=== PATIENT | male | born 1945 | race Caucasian/White ===

== ENCOUNTER 2018-09-24 10:11 | Inpatient (IN) | payer MEDICARE, OTHER ==
[~2018-09-24] VITALS: Ht 185.4 cm; Wt 100.0 kg
[~2018-09-24 10:11] MED LIST: ACET325T33 PO; AMIO200T4 PO; ASC500 PO; ATOR20TA38 PO; BENZ1LOZ52 MM; BISA10SU58 PR; BUDE1AMP IH; CHLO15MO MM; CRAN3875 PO; DILT30TA30 PO; DOCU-144 PO; FERR-55 PO; FURO-110 PO; GEMF600T PO; GLUC1VIA7 IM; HYDR-3498 PO; ISOS30TA PO; LANT3I SC; LEVA0.6312 HHN; LEVE250T5 PO; LORA10CA PO; LORA1TAB PO; LUBI24CA7 PO; MULT1TAB21 PO; NA P118E PR; NOV SC; ONDA4TAB8 PO; PANT40TA3 PO; POLY15DR42 BOTH EYES; POLY17PO6 PO; RIVA20TA5 PO; SIME80TA PO; TAMS0.4C2 PO; TYL500 PO; UDMYL PO
[2018-09-24 10:14] VITALS: Ht 185.4 cm; Wt 100.0 kg
[2018-09-24] MEDS ORDERED: ALBUTEROL 0.083% (NEB) 2.5 MG/3 ML AMP NEB STA (11:35)
[2018-09-24] MEDS ORDERED: CEFEPIME 1GM/50 ML (PMX) 50 ML IVPB STA (12:09)
[2018-09-24] MEDS ORDERED: AMIO200T4 PO (12:29)
[2018-09-24] MEDS ORDERED: LACT1CAP4 PO (12:29)
[2018-09-24] MEDS ORDERED: LEVOFLOXACIN 750MG/D5W (PMX) 150 ML IVPB ONE (12:30)
[2018-09-24] MEDS ORDERED: POLY15DR25 BOTH EYES (12:30)
[2018-09-24] MEDS ORDERED: TAMS0.4C2 PO (12:31)
[2018-09-24] MEDS ORDERED: NA P133E10 RC (12:31)
[2018-09-24] MEDS ORDERED: APIX5TAB PO (12:32)
[2018-09-24] MEDS ORDERED: FER325 PO (12:32)
[2018-09-24] MEDS ORDERED: BISA10SU55 RC (12:34)
[2018-09-24] MEDS ORDERED: CARSR60 PO (12:38)
[2018-09-24] MEDS ORDERED: CRAN425C6 PO (12:39)
[2018-09-24] MEDS ORDERED: CARV3.12 PO (12:40)
[2018-09-24] MEDS ORDERED: DOCU-144 PO (12:40)
[2018-09-24] MEDS ORDERED: CHLO473M4 MM (12:41)
[2018-09-24] MEDS ORDERED: LORA-186 PO (12:41)
[2018-09-24] MEDS ORDERED: LORA-441 PO (12:42)
[2018-09-24] MEDS ORDERED: ACET325T45 PO (12:44)
[2018-09-24] MEDS ORDERED: ACET-2047 PO ×2 (12:44→13:02)
[2018-09-24] MEDS ORDERED: SENN-120 PO (12:45)
[2018-09-24] MEDS ORDERED: PANT40TA3 PO (12:45)
[2018-09-24] MEDS ORDERED: FAMO-96 PO (12:46)
[2018-09-24] MEDS ORDERED: HYDR-4011 PO (12:47)
[2018-09-24] MEDS ORDERED: GABA100C14 PO (12:47)
[2018-09-24] MEDS ORDERED: MAGN400O19 PO (12:48)
[2018-09-24] MEDS ORDERED: INSU100I27 SQ (12:48)
[2018-09-24] MEDS ORDERED: LEVE250T66 PO (12:49)
[2018-09-24] MEDS ORDERED: LEVO25TA PO (12:50)
[2018-09-24] MEDS ORDERED: ONDA4TAB13 PO (12:50)
[2018-09-24] MEDS ORDERED: ISOS30TA67 PO (12:50)
[2018-09-24] MEDS ORDERED: LEVA1.257 INHALATION ×2 (12:53)
[2018-09-24] MEDS ORDERED: ASCO500C7 PO (12:58)
[2018-09-24] MEDS ORDERED: CRAN3875 PO (12:59)
[2018-09-24] MEDS ORDERED: ACET-141 PO (13:02)
--- NOTE | 2018-09-24 14:11 | ERD ---
ER Documentation Chief Complaint Chief Complaint C/O THROAT PAIN AND DYSPHAGIA. YELLOW SECRETIONS FROM TRACH HPI This is a 73-year-old male who was sent here from a nursing care facility because of painful swallowing and difficulty swallowing his food. The patient is a very poor historian and can only speak a few words at a time. He is trach to vent. No he says that he was up all night with nurses because he had a hard time swallowing but the report was that he was having some hard time breathing with possible cough history. He also states that he has not been eating as much as he is usually does lately. Patient has no respiratory distress and is calm ROS All systems reviewed and are negative except as per history of present illness. Medications Home Meds Reported Medications Acetaminophen* (Acetaminophen*) 650 Mg Tablet, 650 MG PO BID PRN for PAIN MANAGEMENT, #30 TAB 09/24/18 Acetaminophen* (Acetaminophen*) 500 MG Extra Strength Tablet, 1000 MG PO Q4 PRN for MODERATE PAIN LEVEL 4-6, TAB 09/24/18 Cran/Vitc/Mannose/Inulin/Brom (Uti-Stat Liquid) 3,875 Mg/30 Ml Liquid, 3875 MG PO BID 09/24/18 Ascorbic Acid* (Vitamin C*) 500 Mg Capsule.sa, 500 MG PO DAILY, CAP 09/24/18 Levalbuterol Hcl* (Levalbuterol Hcl*) 1.25 Mg/3 Ml Vial.neb, 1.25 MG INHALATION Q2H, VIAL GIVE WITH ATROVENT 0.5MG 09/24/18 Levalbuterol Hcl* (Levalbuterol Hcl*) 1.25 Mg/3 Ml Vial.neb, 1.25 MG INHALATION Q4 PRN for WHEEZING AND SOB, VIAL 09/24/18 Ondansetron Hcl* (Zofran*) 4 Mg Tab, 4 MG PO Q4H PRN for NAUSEA AND OR VOMITING, TAB 09/24/18 Levothyroxine Sodium* (Synthroid*) 25 Mcg Tablet, 25 MCG PO BEFORE BREAKFAST, #30 TAB 09/24/18 Isosorbide Mononitrate* (Isosorbide Mononitrate*) 30 Mg Tab.er.24h, 30 MG PO DAILY, TAB HOLD IF SBP BELOW 110 09/24/18 Levetiracetam* (Keppra*) 250 Mg Tab, 250 MG PO TID, TAB 09/24/18 Insulin Detemir (Levemir Flextouch) 100 Unit/1 Ml Insuln.pen, 15 UNIT SQ QHS, EA 09/24/18 Magnesium Hydroxide* (Milk Of Magnesia*) 400 Mg/5 Ml Oral.susp, 30 ML PO DAILY PRN for CONSTIPATION, ML 09/24/18 Gabapentin* (Gabapentin*) 100 Mg Capsule, 100 MG PO DAILY, #90 CAP 09/24/18 Hydrocodone/Acetaminophen (Morland 5-325 Tablet) 1 Each Tablet, 1 EACH PO Q6 PRN for SEVERE PAIN LEVEL 7-10, TAB 09/24/18 Famotidine* (Pepcid*) 20 Mg Tablet, 20 MG PO BID, #60 TAB 09/24/18 Pantoprazole* (Protonix*) 40 Mg Tablet.dr, 40 MG PO DAILY, TAB 09/24/18 Sennosides* (Senna Lax*) 8.6 Mg Tablet, 2 TAB PO BID, TAB 09/24/18 Acetaminophen* (Acetaminophen*) 650 Mg Tablet, 650 MG PO Q4 PRN for MILD PAIN LEVEL 1-3, #30 TAB 09/24/18 Acetaminophen* (Acetaminophen*) 325 Mg Tablet, 650 MG PO TRACH TUBE CHANGE PRN for PAIN AND OR ELEVATED TEMP, #30 TAB GIVE 30 MIN PRIOR 09/24/18 Lorazepam* (Ativan*) 0.5 Mg Tablet, 0.5 MG PO Q6 PRN for ANXIETY, #30 TAB 09/24/18 Chlorhexidine Gluconate (Peridex) 473 Ml Mouthwash, 15 ML MM Q12, BOTTLE 09/24/18 Loratadine* (Claritin*) 10 Mg Tablet, 10 MG PO DAILY, TAB 09/24/18 Docusate Sodium* (Colace*) 100 Mg Capsule, 100 MG PO TID, #60 CAP 09/24/18 Carvedilol* (Coreg*) 3.125 Mg Tablet, 3.125 MG PO BID, #60 TAB HOLD IF SBP BELOW 110 OR HR BELOW 60 09/24/18 Cranberry Extract (Cranberry) 425 Mg Capsule, 425 MG PO DAILY, CAP 09/24/18 Diltiazem Hcl* (Cardizem SR*) 60 Mg Capsr, 60 MG PO Q8, #60 CAP HOLD IF SBP BELOW 110 OR HR BELOW 60 09/24/18 Bisacodyl (Dulcolax) 10 Mg Supp.rect, 10 MG RC DAILY PRN for CONSTIPATION, SUPP.RECT 09/24/18 Apixaban* (Eliquis*) 5 Mg Tablet, 5 MG PO BID, TAB 09/24/18 Ferrous Sulfate* (Ferrous Sulfate*) 325 Mg Tabec, 325 MG PO DAILY, TAB 09/24/18 Na Phos,M-B/Na Phos,Di-Ba (ENEMA VEZMP-AB-ERB) 133 Ml Enema, 133 ML RC PRN PRN for SEVERE CONSTIPATION, ENEMA 09/24/18 Tamsulosin Hcl* (Tamsulosin Hcl*) 0.4 Mg Cap.er.24h, 0.4 MG PO HS, CAP 09/24/18 Polyvinyl Alcohol (Tears Again) 15 Ml Drops, 1 DRP BOTH EYES TID PRN for DRY EYES, BOTTLE 09/24/18 Amiodarone Hcl* (Amiodarone Hcl*) 200 Mg Tablet, 200 MG PO BID, #60 TAB 09/24/18 Lactobacillus Acidophilus/Pect (Acidophilus-Pectin Capsule) 1 Each Capsule, 1 EACH PO DAILY, CAP 09/24/18 Discontinued Reported Medications Simethicone* (Anti-Gas/80*) 80 Mg Tab.chew, 80 MG PO Q6H PRN for DISTENSION/GAS/BLOATING, TAB.CHEW 09/29/15 Polyethylene Glycol* (Miralax*) 17 Gm Powd.pack, 17 GM PO DAILY PRN for CONSTIPATION, #30 PACKET 09/29/15 Chlorhexidine Gluconate* (Peridex*) 480 Ml Mouthwash, 15 ML MM BID, ML 09/03/15 Loratadine* (Claritin*) 10 Mg Capsule, 10 MG PO DAILY, CAP 09/03/15 Levetiracetam* (Levetiracetam*) 250 Mg Tablet, 250 MG PO TID, TAB 09/03/15 Tamsulosin Hcl* (Tamsulosin Hcl*) 0.4 Mg Cap.er.24h, 0.4 MG PO DAILY, CAP 09/03/15 Lorazepam* (Lorazepam*) 1 Mg Tablet, 1 MG PO BID PRN for ANXIETY, #30 TAB 09/03/15 Benzocaine/Menthol* (Cepacol* Sore Throat Lozenges) 1 Each Lozenge, 1 EACH MM q2h PRN for SORE THROAT, LOZENGE 09/03/15 Insulin Glargine* (Lantus*) 100 Unit/Ml Soln, 10 UNIT SC DAILY, EA 09/03/15 Hydrocodone Bit-Acetaminophen* (Morland*) 5-325 Mg Tab, 1 TAB PO Q6 PRN for SEVERE PAIN LEVEL 7-10, TAB 09/03/15 Atorvastatin Calcium* (Atorvastatin Calcium*) 20 Mg Tablet, 20 MG PO QHS, #30 TAB 09/03/15 Rivaroxaban* (Xarelto*) 20 Mg Tablet, 20 MG PO WITH DINNER, TAB 02/26/15 Ascorbic Acid (Vitamin C) 500 Mg Tab, 500 MG PO DAILY, TAB 02/26/15 Budesonide* (Pulmicort*) 1 Mg/2 Ml Ampul.neb, 0.5 MG IH BID, EA 02/26/15 Magaldrate/Simethicone* (Mag-Al Plus Suspension*) 30 Ml Oral.susp, 30 ML PO Q6H PRN for GASTROINTESTINAL UPSET, ML 02/26/15 Furosemide* (Lasix*) 20 Mg Tablet, 20 MG PO DAILY, TAB 02/26/15 Diltiazem Hcl* (Cardizem*) 30 Mg Tablet, 30 MG PO Q8, TAB HOLD IF SBP BELOW 110 OR HR BELOW 60 02/26/15 Docusate Sodium* (Colace*) 100 Mg Capsule, 100 MG PO TID, CAP 02/26/15 Lubiprostone* (Amitiza*) 24 Mcg Capsule, 24 MCG PO DAILY PRN for CONSTIPATION, CAP 02/26/15 Insulin Aspart* (Novolog Insulin Vial*) 100 U/Ml Vial, 0 SC SLIDING SCALE AC, VIAL 0-150 = 0 UNIT 151-200 = 2 UNITS 201-250 = 4 UNITS 251-300 = 6 UNITS 301-350 = 8 UNITS 351-400 = 10 UNITS ABOVE 400 OR BELOW 60 NOTIFY . MAY GIVE OJ 8 OZ OF GLUCOSE GEL IF BS IS BELOW 60 02/26/15 Pantoprazole* (Protonix*) 40 Mg Tablet.dr, 40 MG PO DAILY, TAB 07/31/14 Isosorbide Mononitrate* (Imdur*) 30 Mg Tab.sr.24h, 30 MG PO DAILY, TAB HOLD FOR SBP BELOW 110 07/31/14 Na Phos,M-B/Na Phos,Di-Ba* (Fleet* Enema) 118 Ml Enema, 118 ML NV Q48H PRN for CONSTIPATION, ENEMA 07/31/14 Bisacodyl* (Dulcolax*) 10 Mg/Supp.rect Supp.rect, 10 MG NV DAILY PRN for CONSTIPATION, SUPP.RECT 07/31/14 Glucagon* (Glucagen*) 1 Mg Soln, 1 MG IM Q15MIN PRN for DECREASED GLUCOSE, VIAL 05/06/14 Ondansetron Hcl* (Zofran*) 4 Mg Tablet, 4 MG PO Q4H PRN for NAUSEA AND OR VOMITING, TAB 05/06/14 Levalbuterol* (Xopenex*) 0.63 Mg/3 Ml Nebu, 0.63 MG HHN Q2H PRN for WHEEZING AND SOB, EA 05/06/14 Cran/Vitc/Mannose/Inulin/Brom (Uti-Stat Liquid) 3,875 Mg/30 Ml Liquid, 30 ML PO BID 05/06/14 Acetaminophen* (Tylenol*) 500 Mg Tab, 1000 MG PO Q4H PRN for PAIN AND OR ELEVATED TEMP, TAB 05/06/14 Acetaminophen* (Tylenol*) 325 Mg Tablet, 650 MG PO Q4H PRN for MILD PAIN LEVEL 1-3, TAB 05/06/14 Artificial Tears* (Artificial Tears* Ophth) 15 ml Opht, 1 DROP BOTH EYES BID PRN for DRY EYES, EA 05/06/14 Multivitamins,Therapeutic (Theragran) 1 Tab Tablet, 1 TAB PO DAILY 11/23/13 Gemfibrozil* (Lopid*) 600 Mg Tablet, 600 MG PO BID 11/23/13 Ferrous Sulfate* (Ferrous Sulfate*) 325 Mg Tablet, 325 MG PO DAILY 11/23/13 Amiodarone Hcl* (Amiodarone Hcl*) 200 Mg Tablet, 200 MG PO DAILY 11/23/13 Allergies Allergies: Coded Allergies: vancomycin (Verified Allergy, Severe, contact dermatitis, 09/24/18) PMhx/Soc History of Surgery: Yes (Plate in left leg) Anesthesia Reaction: No Hx Neurological Disorder: No Hx Respiratory Disorders: Yes (vent dependent trach) Hx Cardiac Disorders: Yes (AFIB, HF) Hx Psychiatric Problems: No Hx Miscellaneous Medical Probl: Yes (chronic resp failure on vent s/p trach, dyspagia) Hx Alcohol Use: No Hx Substance Use: No Hx Tobacco Use: No Smoking Status: Never smoker FmHx Family History: No coronary disease Physical Exam Vitals Vital Signs Date Temp Pulse Resp B/P (MAP) Pulse Ox O2 O2 Flow FiO2 Time Delivery Rate 09/24/18 77 21 99 60 14:24 09/24/18 72 16 121/65 100 Room Air 14:12 (83) 09/24/18 87 16 122/79 100 Mechanical 11:01 (93) Ventilator 09/24/18 84 24 100 60 10:26 09/24/18 99.1 84 18 143/70 98 10:14 (94) Physical Exam Const: Well-developed, well-nourished Head: Atraumatic, normocephalic Eyes: Normal Conjunctiva, PERRLA, EOMI, normal sclera, no nystagmus ENT: Normal External Ears, Nose and Mouth, moist mucus membranes, trach is clear no signs of infection. Neck: Full range of motion. No meningismus, no lymphadenopathy. Resp: Clear to auscultation bilaterally, no wheezing, rhonchi, rales Cardio: Regular rate and rhythm, no murmurs, S1 S2 present Abd: Soft, non tender x 4, non distended. Normal bowel sounds, no gua rding or rebound, no pulsitile abdominal masses or bruits Skin: No petechiae or rashes, no ecchymosis , no maculopapular rash Back: No midline or flank tenderness Ext: No cyanosis, or edema, FROM x 4, normal inspection, neurovascularly intact x 4 Neur: Awake and alert, STR 5/5 x 4, sensation intact x 4, no focal findings, cerebellum intact Psych: Normal Mood and Affect Result Diagram: 09/24/18 1115 09/24/18 1115 Results 24 hrs Laboratory Tests Test 09/24/18 11:15 White Blood Count 6.7 10^3/ul Red Blood Count 3.70 10^6/ul Hemoglobin 10.7 g/dl Hematocrit 34.8 % Mean Corpuscular Volume 94.1 fl Mean Corpuscular Hemoglobin 28.9 pg Mean Corpuscular Hemoglobin Concent 30.7 g/dl Red Cell Distribution Width 14.5 % Platelet Count 275 10^3/UL Mean Platelet Volume 10.4 fl Immature Granulocytes % 0.300 % Neutrophils % 66.8 % Lymphocytes % 22.6 % Monocytes % 7.8 % Eosinophils % 1.9 % Basophils % 0.6 % Nucleated Red Blood Cells % 0.0 /100WBC Immature Granulocytes # 0.020 10^3/ul Neutrophils # 4.5 10^3/ul Lymphocytes # 1.5 10^3/ul Monocytes # 0.5 10^3/ul Eosinophils # 0.1 10^3/ul Basophils # 0.0 10^3/ul Nucleated Red Blood Cells # 0.0 10^3/ul Sodium Level 144 mmol/L Potassium Level 3.8 mmol/L Chloride Level 103 mmol/L Carbon Dioxide Level 28 mmol/L Anion Gap 13 Blood Urea Nitrogen 20 mg/dl Creatinine 1.47 mg/dl Est Glomerular Filtrat Rate mL/min mL/min Glucose Level 139 mg/dl Calcium Level 9.4 mg/dl Troponin I < 0.012 ng/ml B-Type Natriuretic Peptide 132 PG/ML Current Medications Medications Dose Sig/Austen Start Time Status Last (Trade) Ordered Route PRN Stop Time Admin Dose Reason Admin Albuterol 5 mg ONCE STAT 09/24/18 DC 09/24/18 (Proventil NEB 11:35 14:23 0.083% (Neb)) 09/24/18 11:36 Cefepime HCl 50 ml @ ONCE STAT 09/24/18 DC 09/24/18 100 mls/hr IVPB 12:09 13:31 09/24/18 12:38 150 ml @ ONCE ONCE 09/24/18 DC 09/24/18 Levofloxacin/ 100 mls/hr IVPB 12:30 13:31 Dextrose 09/24/18 13:59 Ondansetron 4 mg ER BRIDGE 09/24/18 HCl (Zofran PRN IV 15:00 Inj) NAUSEA/VOMITI 09/25/18 14:59 NG 650 mg ER BRIDGE 09/24/18 Acetaminophen PRN PO 15:00 (Tylenol .MILD PAIN 09/25/18 14:59 Tab) 1-3 OR TEMP Procedures/MDM Ordering MD: ADE RAIN DO Location: E/R Room/Bed: PROCEDURE: XR Chest 1 View. CLINICAL INDICATION: Chest pain. TECHNIQUE: Single view of the chest was obtained. COMPARISON: CR CHEST 10/01/2015 FINDINGS: Mediastinum: Heart size within normal limits. Calcified atherosclerosis in the aorta. Lungs: Central pulmonary vascular congestion and interstitial prominence in both lungs. Patchy atelectasis versus infiltrates in the right lower lobe. Retrocardiac opacity. Hypoinflated lungs. No pneumothorax. Osseous structures: Intact. Other: None. IMPRESSION: Calcified atherosclerosis in the aorta. Central pulmonary vascular congestion and interstitial prominence in both lungs. Retrocardiac opacity that may reflect left lower lobe atelectasis or infiltrate combined with small pleural effusion. Atelectasis versus mild infiltrates in the right lower lobe. Hypoinflated lungs. RPTAT: AA .Jonathan Shelton MD, Date Time Electronically viewed and signed by .Jonathan Shelton MD, MD on 09/24/2018 11:41 .P/ CC: ADE RAIN DO [id number] Sent off a BNP. We will get blood cultures and start some antibiotics for shelter acquired pneumonia. He does not appear septic or meet SIRS criteria Patient for admission Departure Diagnosis: Primary Impression: Pneumonia Pneumonia type: due to unspecified organism Laterality: left Lung location: lower lobe of lung Qualified Codes: J18.1 - Lobar pneumonia, unspecified organism Additional Impression: Volume overload Hypervolemia type: unspecified Qualified Codes: E87.70 - Fluid overload, unspecified Condition: Stable ADE RAIN DO Sep 24, 2018 14:11
[2018-09-24] MEDS ORDERED: ACETAMINOPHEN 325 MG TAB PO PRN (15:00)
[2018-09-24] MEDS ORDERED: ONDANSETRON 4 MG INJ IV PRN (15:00)
--- NOTE | 2018-09-24 15:28 | HP ---
REBECA KRAUSE 09/24/18 1528: Date/Time of Note Date/Time of Note DATE: 09/24/18 TIME: 15:28 Assessment/Plan VTE Prophylaxis Pharmacological prophylaxis: apixaban Lines/Catheters IV Catheter Type (from [facility]): Peripheral IV Assessment/Plan Hospital Course 1. Dysphagia. Clinical dehydration with elevated creatinine. Pt creatinine 2 years ago was normal. Xray chest reveals: Atelectasis versus mild infiltrates in the right lower lobe. 2. Chronic respiratory failure, status post tracheostomy. 3. Normocytic hypochromic anemia. 4. DM type ii 5. History of hypertension. 6. History of previous dysphagia. 7. History of nontoxic megacolon. 8. History of hypertension. 9. History of hyperlipidemia. 10. Overweight 11. History of long-term mechanical ventilation 12. History of chronic obstructive pulmonary disease. 13. Seborrhea 14. Hx of afib, pt was on Eliquis 15. Hx of BPH Assessment/Plan -admit to the telemetry -NPO -video swallow eval -DVT prophylaxis Start Lovenox -GI prophylaxis Protonix IV -pulmonary consult, Dr. Nava to see the patient, called Dr Kemp, spoke to him. -change the patient to some of the medications to IV including Keppra 250 mg IV b.i.d. -steroid treatment on face Result Diagram: 09/24/18 1115 09/24/18 1115 Results 24hrs Laboratory Tests Test 09/24/18 11:15 White Blood Count 6.7 Red Blood Count 3.70 L Hemoglobin 10.7 L Hematocrit 34.8 L Mean Corpuscular Volume 94.1 Mean Corpuscular Hemoglobin 28.9 L Mean Corpuscular Hemoglobin Concent 30.7 L Red Cell Distribution Width 14.5 Platelet Count 275 Mean Platelet Volume 10.4 # Immature Granulocytes % 0.300 Neutrophils % 66.8 Lymphocytes % 22.6 Monocytes % 7.8 Eosinophils % 1.9 Basophils % 0.6 Nucleated Red Blood Cells % 0.0 Immature Granulocytes # 0.020 Neutrophils # 4.5 Lymphocytes # 1.5 Monocytes # 0.5 Eosinophils # 0.1 Basophils # 0.0 Nucleated Red Blood Cells # 0.0 Sodium Level 144 Potassium Level 3.8 Chloride Level 103 Carbon Dioxide Level 28 Anion Gap 13 Blood Urea Nitrogen 20 Creatinine 1.47 H Est Glomerular Filtrat Rate mL/min Glucose Level 139 Calcium Level 9.4 Troponin I < 0.012 B-Type Natriuretic Peptide 132 HPI/ROS Admit Date/Time Admit Date/Time Hx of Present Illness This is a 73-year-old [facility] resident with a history of COPD, chronic respiratory failure, hypertension, hyperlipidemia, obesity on mechanical ventilator, status post tracheostomy. He is normally able to eat and drink. He came in with difficulties swallowing for a 2 days. He reported sudden inability to swallow. Pt is a poor historia, able to say a few words. Denied chest pain, dysuria, cough, blood loss, melena, vomitting. He was brought in by paramedics ROS ENT: no complaints Respiratory: no complaints, pain, cough, pleuritic pain, shortness of breath, sputum, wheezing, other Cardiovascular: chest pain; No no complaints, No edema, No lightheadedness, No orthopenea, No palpitat ions, No paroxysmal nocturnal dyspnea, No other Gastrointestinal: constipation, decreased appetite, diarrhea, other (unable to swallow food); No no complaints, No pain, No blood, No flatus, No nausea, No passing stool, No vomiting Genitourinary: bleeding, dysuria; No no complaints, No discharge, No flank pain, No hematuria, No other PMH/Family/Social Past Medical History Medical History: colitis, diabetes, high cholesterol, hypertension Medications Current Medications Ondansetron HCl (Zofran Inj) 4 mg ER BRIDGE PRN IV NAUSEA/VOMITING; Start 09/24/18 at 15:00; Stop 09/25/18 at 14:59 Acetaminophen (Tylenol Tab) 650 mg ER BRIDGE PRN PO .MILD PAIN 1-3 OR TEMP; Start 09/24/18 at 15:00; Stop 09/25/18 at 14:59 Coded Allergies: vancomycin (Verified Allergy, Severe, contact dermatitis, 09/24/18) Past Surgical History Past Surgical Hx: other (tracheostomy) Social History Smoking Status: Never smoker Exam/Review of Systems Vital Signs Vitals Vital Signs Date Temp Pulse Resp B/P (MAP) Pulse Ox O2 O2 Flow FiO2 Time Delivery Rate 09/24/18 77 21 99 60 14:24 09/24/18 121/65 Room Air 14:12 (83) 09/24/18 99.1 10:14 Exam Constitutional: alert, oriented (to name, cituation) Head: normocephalic Eyes: nl conjunctiva Neck: other (tracheostomy) Respiratory: clear to auscultation Cardiovascular: regular rate and rhythm Gastrointestinal: soft, distended Genitourinary - Male: CVA tenderness; No nl penis, No nl scrotum, No discharge, No other KADEEM MATHEW MD 09/25/18 0453: Assessment/Plan Assessment/Plan Assessment/Plan seen and examined dysphagia with aspiration pneumonia? sputum cx video swallow pt had g tube before iv abx Result Diagram: 09/24/18 1115 09/24/18 1115 PMH/Family/Social Past Medical History Coded Allergies: vancomycin (Verified Allergy, Severe, contact dermatitis, 09/24/18) REBECA VIGIL Sep 24, 2018 15:28 KADEEM MATHEW MD Sep 25, 2018 04:53
[2018-09-24] MEDS ORDERED: GLUCOSE GEL 15 GRAM TUBE BUCCAL PRN (17:30)
[2018-09-24] MEDS ORDERED: hydrALAzine 20 MG INJ IV PRN (17:30)
[2018-09-24] MEDS ORDERED: GLUCOSE GEL 15 GRAM TUBE PO PRN ×2 (17:30)
[2018-09-24] MEDS ORDERED: GLUCAGON 1 MG INJ IM PRN (17:30)
[2018-09-24] MEDS ORDERED: BISACODYL 10 MG SUPP PR PRN (17:30)
[2018-09-24] MEDS ORDERED: DEXTROSE 50% 50 ML SYRINGE IV PRN ×2 (17:30)
[2018-09-24] MEDS: INSULIN ASPART [NOVOLOG] 3 ML PEN SC SCH ×2 (18:00→23:58)
[2018-09-24 18:09] VITALS: BP 110/58; PULSE 68; RESP 19
[2018-09-24 18:16] VITALS: PULSE 79
[2018-09-24] MEDS: DEXTROSE 5%-0.45% NACL 1,000 ML IV SCH (18:32)
--- NOTE | 2018-09-24 19:33 | NUR ---
pt transferred from er to room 629 ,at 1815, pt pale skin very dry and flakey, pt c\o feeling itchy abd large obese positive bt noted pt on trach to vent set up by resp tx pt has no c\o pain or nausea here for c\o problems swallowing and sore throat tele sr pictures taken and placed in chart of wounds pt [place] in [place] from [place] please see chart for details
[2018-09-24 20:00] VITALS: BP 116/57; PULSE 77; PULSE 78; RESP 19
[2018-09-24] MEDS ORDERED: PENDING SANTYL ORDER FOR WOUND CARE XX PRN (20:00)
[2018-09-24 20:14] VITALS: RESP 23
[2018-09-24 21:42] VITALS: RESP 20
[2018-09-24] MEDS: LEVETIRACETAM 1000 MG (PMX) 100 ML IVPB SCH (22:40)
[2018-09-24] MEDS: CLOBETASOL 0.05% 15 GM OINT TOP SCH (22:43)
[2018-09-24 23:20] VITALS: RESP 20
[2018-09-25] VITALS (18 sets, daily range): BP systolic 104–119; BP diastolic 55–63; PULSE 63–93; RESP 16–25
[2018-09-25] MEDS: INSULIN ASPART [NOVOLOG] 3 ML PEN SC SCH ×3 (05:52→17:35)
[2018-09-25] MEDS: LEVOTHYROXINE 100 MCG VIAL IV SCH (05:52)
[2018-09-25] MEDS: PANTOPRAZOLE 40 MG INJ IV SCH (05:52)
[2018-09-25] MEDS: DEXTROSE 5%-0.45% NACL 1,000 ML IV SCH ×2 (06:50→18:33)
--- NOTE | 2018-09-25 07:45 | NUR ---
EOSS: Patient alert and oriented, trach to vent, able to make needs known. Patient currently on NPO as patient c/o pain when swallowing. Pending video swallow eval. VS were WNL. Patient requested to have breathing treatment per RT, Dr. Howe was called, but did not receive a return call, endorsed to AM nurse. Trace care was provided, wound care provided, patient repositioned q2h, patient kept dry and clean, suctioning provided PRN. Endorsed to AM nurse. Continue with plan of care.
--- NOTE | 2018-09-25 08:48 | CONS ---
Assessment/Plan Assessment/Plan Assessment/Plan (Daily) Chest x-ray showing mild cardiomegaly with mild basilar infiltrates possibly chronic atelectatic changes. Patient does have mild leukocytosis. Assessment and recommendations; 1. Patient admitted with failure to thrive with dysphagia which apparently is new in onset. 2. Patient is dehydrated with possibly acute on chronic renal injury. 3. Bibasilar infiltrates with leukocytosis possibly some element of aspiration pneumonia. 4. History of BPH, hypertension, atrial fibrillation, hypothyroidism, seizure disorder and CHF which all appear fairly stable. Continue current supportive care. Monitor renal function. Obtain follow-up chest x-ray 24 hours. Continue cefepime for now. Consultation Date/Type/Reason Admit Date/Time Date of Consultation: Sep 25, 2018 Type of Consult Pulmonary Patient is a 73-year-old male with history of dementia and VDR F transferred to the hospital because of inability to swallow for the last 2 days. Patient also was found to be dehydrated with possibly acute on chronic renal insufficiency. Because of poor mental status, patient was unable to give any history by himself whatsoever. History was obtained from medical records. Patient however did not appear to be in any distress whatsoever. Past medical history; 1. VDR F evidently due to COPD. 2. History of tracheostomy 3. History of seizure disorder. 4. Possibly baseline mild renal insufficiency. 5. Chronic atrial for ablation. 6. BPH. 7. History of colitis. 8. Possibly underlying CHF as well. Medications; reviewed. Allergies; vancomycin. Family history, social history, occupational history not available. Review of system; unable to be obtained. General exam; elderly male, fairly responsive. Trying to communicate with lip movements. Currently no distress. On ventilator via tracheostomy. Date/Time of Note DATE: 09/25/18 TIME: 08:43 Past Medical History Medical History: colitis, diabetes, high cholesterol, hypertension Home Meds Reported Medications Acetaminophen* (Acetaminophen*) 650 Mg Tablet, 650 MG PO BID PRN for PAIN MANAGEMENT, #30 TAB 09/24/18 Acetaminophen* (Acetaminophen*) 500 MG Extra Strength Tablet, 1000 MG PO Q4 PRN for MODERATE PAIN LEVEL 4-6, TAB 09/24/18 Cran/Vitc/Mannose/Inulin/Brom (Uti-Stat Liquid) 3,875 Mg/30 Ml Liquid, 3875 MG PO BID 09/24/18 Ascorbic Acid* (Vitamin C*) 500 Mg Capsule.sa, 500 MG PO DAILY, CAP 09/24/18 Levalbuterol Hcl* (Levalbuterol Hcl*) 1.25 Mg/3 Ml Vial.neb, 1.25 MG INHALATION Q2H, VIAL GIVE WITH ATROVENT 0.5MG 09/24/18 Levalbuterol Hcl* (Levalbuterol Hcl*) 1.25 Mg/3 Ml Vial.neb, 1.25 MG INHALATION Q4 PRN for WHEEZING AND SOB, VIAL 09/24/18 Ondansetron Hcl* (Zofran*) 4 Mg Tab, 4 MG PO Q4H PRN for NAUSEA AND OR VOMITING, TAB 09/24/18 Levothyroxine Sodium* (Synthroid*) 25 Mcg Tablet, 25 MCG PO BEFORE BREAKFAST, #30 TAB 09/24/18 Isosorbide Mononitrate* (Isosorbide Mononitrate*) 30 Mg Tab.er.24h, 30 MG PO DAILY, TAB HOLD IF SBP BELOW 110 09/24/18 Levetiracetam* (Keppra*) 250 Mg Tab, 250 MG PO TID, TAB 09/24/18 Insulin Detemir (Levemir Flextouch) 100 Unit/1 Ml Insuln.pen, 15 UNIT SQ QHS, EA 09/24/18 Magnesium Hydroxide* (Milk Of Magnesia*) 400 Mg/5 Ml Oral.susp, 30 ML PO DAILY PRN for CONSTIPATION, ML 09/24/18 Gabapentin* (Gabapentin*) 100 Mg Capsule, 100 MG PO DAILY, #90 CAP 09/24/18 Hydrocodone/Acetaminophen ([place] 5-325 Tablet) 1 Each Tablet, 1 EACH PO Q6 PRN for SEVERE PAIN LEVEL 7-10, TAB 09/24/18 Famotidine* (Pepcid*) 20 Mg Tablet, 20 MG PO BID, #60 TAB 09/24/18 Pantoprazole* (Protonix*) 40 Mg Tablet.dr, 40 MG PO DAILY, TAB 09/24/18 Sennosides* (Senna Lax*) 8.6 Mg Tablet, 2 TAB PO BID, TAB 09/24/18 Acetaminophen* (Acetaminophen*) 650 Mg Tablet, 650 MG PO Q4 PRN for MILD PAIN LEVEL 1-3, #30 TAB 09/24/18 Acetaminophen* (Acetaminophen*) 325 Mg Tablet, 650 MG PO TRACH TUBE CHANGE PRN for PAIN AND OR ELEVATED TEMP, #30 TAB GIVE 30 MIN PRIOR 09/24/18 Lorazepam* (Ativan*) 0.5 Mg Tablet, 0.5 MG PO Q6 PRN for ANXIETY, #30 TAB 09/24/18 Chlorhexidine Gluconate (Peridex) 473 Ml Mouthwash, 15 ML MM Q12, BOTTLE 09/24/18 Loratadine* (Claritin*) 10 Mg Tablet, 10 MG PO DAILY, TAB 09/24/18 Docusate Sodium* (Colace*) 100 Mg Capsule, 100 MG PO TID, #60 CAP 09/24/18 Carvedilol* (Coreg*) 3.125 Mg Tablet, 3.125 MG PO BID, #60 TAB HOLD IF SBP BELOW 110 OR HR BELOW 60 09/24/18 Cranberry Extract (Cranberry) 425 Mg Capsule, 425 MG PO DAILY, CAP 09/24/18 Diltiazem Hcl* (Cardizem SR*) 60 Mg Capsr, 60 MG PO Q8, #60 CAP HOLD IF SBP BELOW 110 OR HR BELOW 60 09/24/18 Bisacodyl (Dulcolax) 10 Mg Supp.rect, 10 MG RC DAILY PRN for CONSTIPATION, SUPP.RECT 09/24/18 Apixaban* (Eliquis*) 5 Mg Tablet, 5 MG PO BID, TAB 09/24/18 Ferrous Sulfate* (Ferrous Sulfate*) 325 Mg Tabec, 325 MG PO DAILY, TAB 09/24/18 Na Phos,M-B/Na Phos,Di-Ba (ENEMA [id number]) 133 Ml Enema, 133 ML RC PRN PRN for SEVERE CONSTIPATION, ENEMA 09/24/18 Tamsulosin Hcl* (Tamsulosin Hcl*) 0.4 Mg Cap.er.24h, 0.4 MG PO HS, CAP 09/24/18 Polyvinyl Alcohol (Tears Again) 15 Ml Drops, 1 DRP BOTH EYES TID PRN for DRY EYES, BOTTLE 09/24/18 Amiodarone Hcl* (Amiodarone Hcl*) 200 Mg Tablet, 200 MG PO BID, #60 TAB 09/24/18 Lactobacillus Acidophilus/Pect (Acidophilus-Pectin Capsule) 1 Each Capsule, 1 EACH PO DAILY, CAP 09/24/18 Discontinued Reported Medications Simethicone* (Anti-Gas/80*) 80 Mg Tab.chew, 80 MG PO Q6H PRN for DISTENSION/GAS/BLOATING, TAB.CHEW 09/29/15 Polyethylene Glycol* (Miralax*) 17 Gm Powd.pack, 17 GM PO DAILY PRN for CONSTIPATION, #30 PACKET 09/29/15 Chlorhexidine Gluconate* (Peridex*) 480 Ml Mouthwash, 15 ML MM BID, ML 09/03/15 Loratadine* (Claritin*) 10 Mg Capsule, 10 MG PO DAILY, CAP 09/03/15 Levetiracetam* (Levetiracetam*) 250 Mg Tablet, 250 MG PO TID, TAB 09/03/15 Tamsulosin Hcl* (Tamsulosin Hcl*) 0.4 Mg Cap.er.24h, 0.4 MG PO DAILY, CAP 09/03/15 Lorazepam* (Lorazepam*) 1 Mg Tablet, 1 MG PO BID PRN for ANXIETY, #30 TAB 09/03/15 Benzocaine/Menthol* (Cepacol* Sore Throat Lozenges) 1 Each Lozenge, 1 EACH MM q2h PRN for SORE THROAT, LOZENGE 09/03/15 Insulin Glargine* (Lantus*) 100 Unit/Ml Soln, 10 UNIT SC DAILY, EA 09/03/15 Hydrocodone Bit-Acetaminophen* ([place]*) 5-325 Mg Tab, 1 TAB PO Q6 PRN for SEVERE PAIN LEVEL 7-10, TAB 09/03/15 Atorvastatin Calcium* (Atorvastatin Calcium*) 20 Mg Tablet, 20 MG PO QHS, #30 TAB 09/03/15 Rivaroxaban* (Xarelto*) 20 Mg Tablet, 20 MG PO WITH DINNER, TAB 02/26/15 Ascorbic Acid (Vitamin C) 500 Mg Tab, 500 MG PO DAILY, TAB 02/26/15 Budesonide* (Pulmicort*) 1 Mg/2 Ml Ampul.neb, 0.5 MG IH BID, EA 02/26/15 Magaldrate/Simethicone* (Mag-Al Plus Suspension*) 30 Ml Oral.susp, 30 ML PO Q6H PRN for GASTROINTESTINAL UPSET, ML 02/26/15 Furosemide* (Lasix*) 20 Mg Tablet, 20 MG PO DAILY, TAB 02/26/15 Diltiazem Hcl* (Cardizem*) 30 Mg Tablet, 30 MG PO Q8, TAB HOLD IF SBP BELOW 110 OR HR BELOW 60 02/26/15 Docusate Sodium* (Colace*) 100 Mg Capsule, 100 MG PO TID, CAP 02/26/15 Lubiprostone* (Amitiza*) 24 Mcg Capsule, 24 MCG PO DAILY PRN for CONSTIPATION, CAP 02/26/15 Insulin Aspart* (Novolog Insulin Vial*) 100 U/Ml Vial, 0 SC SLIDING SCALE AC, VIAL 0-150 = 0 UNIT 151-200 = 2 UNITS 201-250 = 4 UNITS 251-300 = 6 UNITS 301-350 = 8 UNITS 351-400 = 10 UNITS ABOVE 400 OR BELOW 60 NOTIFY . MAY GIVE OJ 8 OZ OF GLUCOSE GEL IF BS IS BELOW 60 02/26/15 Pantoprazole* (Protonix*) 40 Mg Tablet.dr, 40 MG PO DAILY, TAB 07/31/14 Isosorbide Mononitrate* (Imdur*) 30 Mg Tab.sr.24h, 30 MG PO DAILY, TAB HOLD FOR SBP BELOW 110 07/31/14 Na Phos,M-B/Na Phos,Di-Ba* (Fleet* Enema) 118 Ml Enema, 118 ML CO Q48H PRN for CONSTIPATION, ENEMA 07/31/14 Bisacodyl* (Dulcolax*) 10 Mg/Supp.rect Supp.rect, 10 MG CO DAILY PRN for CONSTIPATION, SUPP.RECT 07/31/14 Glucagon* (Glucagen*) 1 Mg Soln, 1 MG IM Q15MIN PRN for DECREASED GLUCOSE, VIAL 05/06/14 Ondansetron Hcl* (Zofran*) 4 Mg Tablet, 4 MG PO Q4H PRN for NAUSEA AND OR VOMITING, TAB 05/06/14 Levalbuterol* (Xopenex*) 0.63 Mg/3 Ml Nebu, 0.63 MG HHN Q2H PRN for WHEEZING AND SOB, EA 05/06/14 Cran/Vitc/Mannose/Inulin/Brom (Uti-Stat Liquid) 3,875 Mg/30 Ml Liquid, 30 ML PO BID 05/06/14 Acetaminophen* (Tylenol*) 500 Mg Tab, 1000 MG PO Q4H PRN for PAIN AND OR ELEVATED TEMP, TAB 05/06/14 Acetaminophen* (Tylenol*) 325 Mg Tablet, 650 MG PO Q4H PRN for MILD PAIN LEVEL 1-3, TAB 05/06/14 Artificial Tears* (Artificial Tears* Ophth) 15 ml Opht, 1 DROP BOTH EYES BID PRN for DRY EYES, EA 05/06/14 Multivitamins,Therapeutic (Theragran) 1 Tab Tablet, 1 TAB PO DAILY 11/23/13 Gemfibrozil* (Lopid*) 600 Mg Tablet, 600 MG PO BID 11/23/13 Ferrous Sulfate* (Ferrous Sulfate*) 325 Mg Tablet, 325 MG PO DAILY 11/23/13 Amiodarone Hcl* (Amiodarone Hcl*) 200 Mg Tablet, 200 MG PO DAILY 11/23/13 Medications Current Medications Insulin Aspart (Novolog Insulin Pen) NOVOLOG *MILD* ALGORI... Q6 SC Last administered on 09/25/18at 05:52; Admin Dose 1 UNIT; Start 09/24/18 at 18:00 Dextrose/Sodium Chloride 1,000 ml @ 75 mls/hr [id number] IV Last administered on 09/24/18at 18:32; Admin Dose 75 MLS/HR; Start 09/24/18 at 17:30 Miscellaneous Information 1 ea NOTE XX ; Start 09/24/18 at 17:30 Glucose (Glutose) 15 gm Q15M PRN PO DECREASED GLUCOSE; Start 09/24/18 at 17:30 Glucose (Glutose) 22.5 gm Q15M PRN PO DECREASED GLUCOSE; Start 09/24/18 at 17:30 Dextrose (D50w Syringe) 25 ml Q15M PRN IV DECREASED GLUCOSE; Start 09/24/18 at 17:30 Dextrose (D50w Syringe) 50 ml Q15M PRN IV DECREASED GLUCOSE; Start 09/24/18 at 17:30 Glucagon (Glucagen) 1 mg Q15M PRN IM DECREASED GLUCOSE; Start 09/24/18 at 17:30 Glucose (Glutose) 15 gm Q15M PRN BUCCAL DECREASED GLUCOSE; Start 09/24/18 at 17:30 Bisacodyl (Dulcolax Supp) 10 mg DAILY PRN CO CONSTIPATION; Start 09/24/18 at 17:30 Clobetasol Propionate (Temovate 0.05% Oint) 1 applic BID TOP Last administered on 09/24/18at 22:43; Admin Dose 1 APPLIC; Start 09/24/18 at 21:00 Levetiracetam 100 ml @ 400 mls/hr BID IVPB Last administered on 09/24/18at 22:40; Admin Dose 400 MLS/HR; Start 09/24/18 at 21:00 Hydralazine HCl (Apresoline) 20 mg Q6H PRN IV for SBP above 160; Start 09/24/18 at 17:30 Levothyroxine Sodium (Synthroid Iv) 25 mcg QAM IV Last administered on 09/25/18at 05:52; Admin Dose 25 MCG; Start 09/25/18 at 06:00 Pantoprazole (Protonix Iv) 40 mg DAILY@06 IV Last administered on 09/25/18at 05:52; Admin Dose 40 MG; Start 09/25/18 at 06:00 Enoxaparin Sodium (Lovenox) 40 mg DAILY SC ; Start 09/25/18 at 09:00 Miscellaneous [facility] This patient stuart... PRN PRN XX WOUND CARE; Start 09/24/18 at 20:00 Cefepime HCl 50 ml @ 100 mls/hr Q12 IVPB ; Start 09/25/18 at 09:00 Allergies: Coded Allergies: vancomycin (Verified Allergy, Severe, contact dermatitis, 09/24/18) Past Surgical History Past Surgical Hx: other (tracheostomy) Social History Smoking Status: Former smoker Exam/Review of Systems Exam Vitals Vital Signs Date Temp Pulse Resp B/P (MAP) Pulse Ox O2 O2 Flow FiO2 Time Delivery Rate 09/25/18 98.7 83 16 104/59 98 Mechanical 08:15 (74) Ventilator 09/25/18 40 05:16 Intake and Output 09/24/18 09/24/18 09/25/18 1515:00 23:00 07:00 IntakeIntake Total 100 ml 750 ml OutputOutput Total 250 ml 100 ml BalanceBalance -250 ml 0 ml 750 ml Exam HEENT exam; supple neck, no JVD. No lymphadenopathy. Midline trachea. No thyromegaly. Patient is edentulous. Tracheostomy in place. Insertion site is clean. Chest exam; diminished but clear breath sounds. S1-S2 audible, no murmurs. Irregular rhythm. Abdomen exam; soft, no organomegaly. Nontender. Bowel sounds audible. Extremity exam; no edema or clubbing. Pulses 1+. C[employer] OPER[employer] exam; is awake and fairly responsive but exhibiting generalized weakness. Results Result Diagram: 09/25/18 0502 09/25/18 0502 Results 24hrs Laboratory Tests Test 09/24/18 11:15 09/24/18 18:04 09/24/18 23:57 09/25/18 05:02 White Blood Count 6.7 13.8 #H Red Blood Count 3.70 L 4.01 L Hemoglobin 10.7 L 11.5 L Hematocrit 34.8 L 37.5 L Mean Corpuscular 94.1 93.5 Volume Mean Corpuscular 28.9 L 28.7 L Hemoglobin Mean Corpuscular 30.7 L 30.7 L Hemoglobin Concent Red Cell 14.5 14.6 H Distribution Width Platelet Count 275 278 Mean Platelet Volume 10.4 # 11.0 H Immature 0.300 0.400 Granulocytes % Neutrophils % 66.8 88.9 H Lymphocytes % 22.6 7.1 L Monocytes % 7.8 2.4 Eosinophils % 1.9 1.0 Basophils % 0.6 0.2 Nucleated Red Blood 0.0 0.0 Cells % Immature 0.020 0.050 H Granulocytes # Neutrophils # 4.5 12.3 H Lymphocytes # 1.5 1.0 Monocytes # 0.5 0.3 Eosinophils # 0.1 0.1 Basophils # 0.0 0.0 Nucleated Red Blood 0.0 0.0 Cells # Sodium Level 144 144 Potassium Level 3.8 3.5 Chloride Level 103 103 Carbon Dioxide Level 28 28 Anion Gap 13 13 Blood Urea Nitrogen 20 22 H Creatinine 1.47 H 1.64 H Est Glomerular Filtrat Rate mL/min Glucose Level 139 162 Calcium Level 9.4 9.1 Troponin I < 0.012 B-Type Natriuretic 132 Peptide Bedside Glucose 107 129 Hemoglobin A1c 6.7 H Test 09/25/18 05:45 Bedside Glucose 161 Medications Medication Current Medications Insulin Aspart (Novolog Insulin Pen) NOVOLOG *MILD* ALGORI... Q6 SC Last administered on 09/25/18at 05:52; Admin Dose 1 UNIT; Start 09/24/18 at 18:00 Dextrose/Sodium Chloride 1,000 ml @ 75 mls/hr [id number] IV Last administered on 09/24/18at 18:32; Admin Dose 75 MLS/HR; Start 09/24/18 at 17:30 Miscellaneous Information 1 ea NOTE XX ; Start 09/24/18 at 17:30 Glucose (Glutose) 15 gm Q15M PRN PO DECREASED GLUCOSE; Start 09/24/18 at 17:30 Glucose (Glutose) 22.5 gm Q15M PRN PO DECREASED GLUCOSE; Start 09/24/18 at 17:30 Dextrose (D50w Syringe) 25 ml Q15M PRN IV DECREASED GLUCOSE; Start 09/24/18 at 17:30 Dextrose (D50w Syringe) 50 ml Q15M PRN IV DECREASED GLUCOSE; Start 09/24/18 at 17:30 Glucagon (Glucagen) 1 mg Q15M PRN IM DECREASED GLUCOSE; Start 09/24/18 at 17:30 Glucose (Glutose) 15 gm Q15M PRN BUCCAL DECREASED GLUCOSE; Start 09/24/18 at 17:30 Bisacodyl (Dulcolax Supp) 10 mg DAILY PRN CO CONSTIPATION; Start 09/24/18 at 17:30 Clobetasol Propionate (Temovate 0.05% Oint) 1 applic BID TOP Last administered on 09/24/18at 22:43; Admin Dose 1 APPLIC; Start 09/24/18 at 21:00 Levetiracetam 100 ml @ 400 mls/hr BID IVPB Last administered on 09/24/18at 22:40; Admin Dose 400 MLS/HR; Start 09/24/18 at 21:00 Hydralazine HCl (Apresoline) 20 mg Q6H PRN IV for SBP above 160; Start 09/24/18 at 17:30 Levothyroxine Sodium (Synthroid Iv) 25 mcg QAM IV Last administered on 09/25/18at 05:52; Admin Dose 25 MCG; Start 09/25/18 at 06:00 Pantoprazole (Protonix Iv) 40 mg DAILY@06 IV Last administered on 09/25/18at 05:52; Admin Dose 40 MG; Start 09/25/18 at 06:00 Enoxaparin Sodium (Lovenox) 40 mg DAILY SC ; Start 09/25/18 at 09:00 Miscellaneous Information (Pending [facility] Order For Wound Care) This patient stuart... PRN PRN XX WOUND CARE; Start 09/24/18 at 20:00 Cefepime HCl 50 ml @ 100 mls/hr Q12 IVPB ; Start 09/25/18 at 09:00 AYAD HERRON Sep 25, 2018 08:48
[2018-09-25] MEDS ORDERED: FUROSEMIDE 20 MG INJ IV SCH (09:00)
[2018-09-25] MEDS: CLOBETASOL 0.05% 15 GM OINT TOP SCH ×2 (09:29→22:50)
[2018-09-25] MEDS: CEFEPIME 1GM/50 ML (PMX) 50 ML IVPB SCH ×2 (09:29→23:06)
[2018-09-25] MEDS: ENOXAPARIN 40 MG/0.4 ML SYG SC SCH (09:48)
[2018-09-25] MEDS: LEVETIRACETAM 1000 MG (PMX) 100 ML IVPB SCH ×2 (10:50→22:05)
--- NOTE | 2018-09-25 12:09 | PN ---
Date/Time of Note Date/Time of Note DATE: 09/25/18 TIME: 12:09 Assessment/Plan VTE Prophylaxis Risk score (from [facility] [place])>0 risk: 10 SCD applied (from [facility] [place]): No SCD contraindicated: other Pharmacological prophylaxis: LMWH Lines/Catheters IV Catheter Type (from [facility]): Peripheral IV Urinary Cath still in place: No Assessment/Plan Hospital Course 1. Dysphagia. Clinical dehydration with elevated creatinine. Pt creatinine 2 years ago was normal. Xray chest reveals: Atelectasis versus mild infiltrates in the right lower lobe. 2. Chronic respiratory failure, status post tracheostomy. 3. Normocytic hypochromic anemia. 4. DM type ii 5. History of hypertension. 6. History of previous dysphagia. 7. History of nontoxic megacolon. 8. History of hypertension. 9. History of hyperlipidemia. 10. Overweight 11. History of long-term mechanical ventilation 12. History of chronic obstructive pulmonary disease. 13. Seborrhea 14. Hx of afib, pt was on Eliquis 15. Hx of BPH 16. SIRS, elevated wbc. possible aspirational pneumonia Assessment/Plan - telemetry -NPO -video swallow eval -DVT prophylaxis Start Lovenox -GI prophylaxis Protonix IV -pulmonary consult, Dr. Nava to see the patient, called Dr Kemp, spoke to him. -change the patient to some of the medications to IV including Keppra 250 mg IV b.i.d. -steroid treatment on face -c/w ab IV Result Diagram: 09/25/18 0502 09/25/18 0502 Results 24hrs Laboratory Tests Test 09/24/18 18:04 09/24/18 23:57 09/25/18 05:02 09/25/18 05:45 Bedside Glucose 107 129 161 White Blood Count 13.8 #H Red Blood Count 4.01 L Hemoglobin 11.5 L Hematocrit 37.5 L Mean Corpuscular 93.5 Volume Mean Corpuscular 28.7 L Hemoglobin Mean Corpuscular 30.7 L Hemoglobin Concent Red Cell 14.6 H Distribution Width Platelet Count 278 Mean Platelet Volume 11.0 H Immature 0.400 Granulocytes % Neutrophils % 88.9 H Lymphocytes % 7.1 L Monocytes % 2.4 Eosinophils % 1.0 Basophils % 0.2 Nucleated Red Blood 0.0 Cells % Immature 0.050 H Granulocytes # Neutrophils # 12.3 H Lymphocytes # 1.0 Monocytes # 0.3 Eosinophils # 0.1 Basophils # 0.0 Nucleated Red Blood 0.0 Cells # Sodium Level 144 Potassium Level 3.5 Chloride Level 103 Carbon Dioxide Level 28 Anion Gap 13 Blood Urea Nitrogen 22 H Creatinine 1.64 H Est Glomerular Filtrat Rate mL/min Glucose Level 162 Hemoglobin A1c 6.7 H Calcium Level 9.1 Test 09/25/18 11:40 Bedside Glucose 128 Subjective 24 Hr Interval Summary Free Text/Dictation pt has limited words to say Respiratory: shortness of breath Exam/Review of Systems Exam Vitals Vital Signs Date Temp Pulse Resp B/P (MAP) Pulse Ox O2 O2 Flow FiO2 Time Delivery Rate 09/25/18 98.5 85 18 107/57 99 Mechanical 11:43 (74) Ventilator 09/25/18 40 11:05 Intake and Output 09/24/18 09/24/18 09/25/18 1515:00 23:00 07:00 IntakeIntake Total 100 ml 750 ml OutputOutput Total 250 ml 100 ml BalanceBalance -250 ml 0 ml 750 ml Constitutional: alert, oriented Head: normocephalic ENMT: other (tracheostomy) Neck: supple Respiratory: crackles/rales Cardiovascular: regular rate and rhythm Results Results 24hrs Laboratory Tests Test 09/24/18 18:04 09/24/18 23:57 09/25/18 05:02 09/25/18 05:45 Bedside Glucose 107 129 161 White Blood Count 13.8 #H Red Blood Count 4.01 L Hemoglobin 11.5 L Hematocrit 37.5 L Mean Corpuscular 93.5 Volume Mean Corpuscular 28.7 L Hemoglobin Mean Corpuscular 30.7 L Hemoglobin Concent Red Cell 14.6 H Distribution Width Platelet Count 278 Mean Platelet Volume 11.0 H Immature 0.400 Granulocytes % Neutrophils % 88.9 H Lymphocytes % 7.1 L Monocytes % 2.4 Eosinophils % 1.0 Basophils % 0.2 Nucleated Red Blood 0.0 Cells % Immature 0.050 H Granulocytes # Neutrophils # 12.3 H Lymphocytes # 1.0 Monocytes # 0.3 Eosinophils # 0.1 Basophils # 0.0 Nucleated Red Blood 0.0 Cells # Sodium Level 144 Potassium Level 3.5 Chloride Level 103 Carbon Dioxide Level 28 Anion Gap 13 Blood Urea Nitrogen 22 H Creatinine 1.64 H Est Glomerular Filtrat Rate mL/min Glucose Level 162 Hemoglobin A1c 6.7 H Calcium Level 9.1 Test 09/25/18 11:40 Bedside Glucose 128 Medications Medication Current Medications Insulin Aspart (Novolog Insulin Pen) NOVOLOG *MILD* ALGORI... Q6 SC Last administered on 09/25/18at 05:52; Admin Dose 1 UNIT; Start 09/24/18 at 18:00 Dextrose/Sodium Chloride 1,000 ml @ 75 mls/hr [id number] IV Last administered on 09/24/18at 18:32; Admin Dose 75 MLS/HR; Start 09/24/18 at 17:30 Miscellaneous Information 1 ea NOTE XX ; Start 09/24/18 at 17:30 Glucose (Glutose) 15 gm Q15M PRN PO DECREASED GLUCOSE; Start 09/24/18 at 17:30 Glucose (Glutose) 22.5 gm Q15M PRN PO DECREASED GLUCOSE; Start 09/24/18 at 17:30 Dextrose (D50w Syringe) 25 ml Q15M PRN IV DECREASED GLUCOSE; Start 09/24/18 at 17:30 Dextrose (D50w Syringe) 50 ml Q15M PRN IV DECREASED GLUCOSE; Start 09/24/18 at 17:30 Glucagon (Glucagen) 1 mg Q15M PRN IM DECREASED GLUCOSE; Start 09/24/18 at 17:30 Glucose (Glutose) 15 gm Q15M PRN BUCCAL DECREASED GLUCOSE; Start 09/24/18 at 17:30 Bisacodyl (Dulcolax Supp) 10 mg DAILY PRN CA CONSTIPATION; Start 09/24/18 at 17:30 Clobetasol Propionate (Temovate 0.05% Oint) 1 applic BID TOP Last administered on 09/25/18at 09:29; Admin Dose 1 APPLIC; Start 09/24/18 at 21:00 Levetiracetam 100 ml @ 400 mls/hr BID IVPB Last administered on 09/25/18at 10:50; Admin Dose 400 MLS/HR; Start 09/24/18 at 21:00 Hydralazine HCl (Apresoline) 20 mg Q6H PRN IV for SBP above 160; Start 09/24/18 at 17:30 Levothyroxine Sodium (Synthroid Iv) 25 mcg QAM IV Last administered on 09/25/18at 05:52; Admin Dose 25 MCG; Start 09/25/18 at 06:00 Pantoprazole (Protonix Iv) 40 mg DAILY@06 IV Last administered on 09/25/18at 05:52; Admin Dose 40 MG; Start 09/25/18 at 06:00 Enoxaparin Sodium (Lovenox) 40 mg DAILY SC Last administered on 09/25/18at 09:48; Admin Dose 40 MG; Start 09/25/18 at 09:00 Miscellaneous Information (Pending [facility] Order For Wound Care) This patient stuart... PRN PRN XX WOUND CARE; Start 09/24/18 at 20:00 Cefepime HCl 50 ml @ 100 mls/hr Q12 IVPB Last administered on 09/25/18at 09:29; Admin Dose 100 MLS/HR; Start 09/25/18 at 09:00 REBECA VIGIL Sep 25, 2018 12:09
--- NOTE | 2018-09-25 13:21 | NUR ---
Clinical Bedside Swallow Evaluation Completed: Brief Hx: Mr. Bailey is a 73-year-old long term resident with a history of COPD, chronic respiratory failure, hypertension, hyperlipidemia, obesity on mechanical ventilator, status post tracheostomy. He is normally able to eat and drink. He came in with difficulties swallowing for a 2 days. He reported sudden inability to swallow. Pt is a poor historian, able to say a few words. Denied chest pain, dysuria, cough, blood loss, melena, vomiting. PMHX: DM type ii, hypertension, previous dysphagia, nontoxic megacolon, hypertension and hyperlipidemia. Chest XR completed on 09/24/2018: IMPRESSION: Calcified atherosclerosis in the aorta. Central pulmonary vascular congestion and interstitial prominence in both lungs. Retrocardiac opacity that may reflect left lower lobe atelectasis or infiltrate combined with small pleural effusion. Atelectasis versus mild infiltrates in the right lower lobe. Hypoinflated lungs. Vitals; temp: 98.5; RR: 18-20; SPO2: 98% on mechanical ventilator (A/C setting, Tidal Volume: 700; PEEP: 5); with XLT DCT#6 with cuff moderately inflated. Labs: WBC: 13.8H (uptrending); Hgb/Hct: 11.5/37.5L; BUN: 22H; CR level: 1.64H PLOF at SNF: regular/thin liquids, however SNF reported over the phone that they were considering downgrading his diet due to difficulty with mastication the bolus due to being edentulous. Current: NPO+IV Fluids Subjective assessment of cognition specific to swallow safety: Awake, alert, oriented x4, following commands and stating, "It hurts like hell when i swallow." Oral mechanism examination completed: Face was symmetrical, lips, tongue and soft palate were symmetrical with 4+/5 tongue strength, pain reported during protrusion of tongue, edentulous, with tender to touch noted bilaterally on the extrinsic lateral areas of the pharyngeal/laryngeal region. More discomfort was noted along the pts eustachian tube. Suspect pharyngitis. P.O trials were limited to the followin dime-sized ice chips and thin liquid by teaspoon x1. Oral phase of swallow: Oral motor strength and coordination was wfl. Slow but adequate manipulation, mastication and A-P transit with ice chips. No anterior oral leakage with liquids. Reduced oral control with thin liquid by teaspoon resulting in suspected premature loss into the hypopharynx before initiation of the swallow. Pharyngeal phase of swallow: Delayed trigger of swallow. Mildly reduced hyolaryngeal excursion and elevation s/p trach. Other pharyngeal deficits consist of suspected hyopharyngeal edema, impacting posterior pharyngeal wall constriction during the swallow. Suspect penetration and cannot r/o aspiration after thin liquid by teaspoon, resulting in immediate productive cough. Unable to determine vocal quality s/p trach with vent but air leakage noted around the trach with minimal voicing noted. Reduced coordination of breath with swallow safety noted. Impression: oropharyngeal dysphagia; Pt is not safe to initiate a p.o diet and would benefit from a video swallow study to objectively r/o aspiration. Pt would also benefit from ENT consult due to concerns for ? pharyngitis due to the discomfort reported around the extrinsic bilateral pharyngeal/laryngeal region. Recommendation: 1. Keep NPO+ IV Fluids. Allow single ice chips, one at a time for oral gratification following oral care/hygiene management 2. Anticipate need for Video Swallow Study to objectively determine swallow function prior to initiation of diet. 3. Initiate dysphagia therapy 3-5x per week for 1-2 weeks 4. Ongoing assessment/Anticipate need for ENT due to concern for ?pharyngitis s/p discomfort and pain reported about extrinsic bilateral pharyngeal region.
--- NOTE | 2018-09-25 15:14 | NUR ---
WOUND CONSULT: 73 year old male admitted with difficulty swallowing per record. History of hypertension, type2 diabetes, chronic respiratory failure s/p tracheostomy, hyperlipidemia, and COPD per medical history. WBC 13.8. H&H 11.5/37.5. Hemoglobin A1C 6.7. Patient trach to vent. Patient awake, alert, oriented. Condom cath. Incontinent of bowel. Moderate to max assist to turn. On low air loss surface. Patient currently NPO. Planning video swallow study. ASSESSMENT: - Bilateral buttocks/mid gluteal regions stage 3 pressure injuries in combination with incontinent associated dermatitis. Each area measured approximately [id number]. Shallow full thickness wound with red/pink wound bed. Periwound mild maceration. Scant serous drainage. No odor. - Right ischial (previous admitting RN documented as right upper thigh area) healing stage 3 pressure injury. Condition present on admission. Shallow full thickness wound with dry pink wound bed. Periwound intact. No drainage. No odor. RECOMMENDATIONS: - Bilateral buttocks and Right ischial stage 3 pressure injuries: Cleanse with normal saline. Apply 3M Cavilon no-sting skin barrier to periwound skin. Apply Venelex ointment BID to wound bed. Then, cover with foam border dressing. Change foam dressing every 3 days. - Continue low air loss surface. - Reposition every 2 hours. - Float heels off bed with at least 2 pillows. - Limit HOB <30 degree unless contraindicate with patient's condition. Assess patient with RN, Fe. RN to obtain wound care recommendations from XIOMY EnriquezN RN CWOCN
--- NOTE | 2018-09-25 17:58 | NUR ---
EOSS: no significant change of condition,continue with current plan of care.
[2018-09-25] MEDS: BALSAM PERU/CASTOR OIL 60 GM TUBE TOP SCH (23:16)
[2018-09-26] VITALS (21 sets, daily range): BP systolic 100–124; BP diastolic 52–61; PULSE 60–71; RESP 18–22
[2018-09-26] MEDS: INSULIN ASPART [NOVOLOG] 3 ML PEN SC SCH ×4 (05:29→18:00)
[2018-09-26] MEDS: LEVOTHYROXINE 100 MCG VIAL IV SCH ×2 (05:46→09:59)
[2018-09-26] MEDS: PANTOPRAZOLE 40 MG INJ IV SCH (05:46)
--- NOTE | 2018-09-26 06:03 | NUR ---
Patient in stable condition, no acute distress noted overnight, stable vs, blood sugar stable. perineal care done, skin precautions maintained, reposition done q 2 hour.
[2018-09-26] MEDS: LEVETIRACETAM 1000 MG (PMX) 100 ML IVPB SCH ×2 (09:39→22:05)
--- NOTE | 2018-09-26 09:43 | CONS ---
Assessment/Plan Assessment/Plan Assessment/Plan (Daily) Ventilator setting; AC of 20, tidal volume 700, PEEP of 5, 40% FiO2. Assessment recommendations; 1. Patient admitted for dysphagia with failure to thrive. 2. VDR F with likely some element of chronic encephalopathy versus dementia. 3. Anemia. 4. Mild renal insufficiency. 5. History of seizure disorder. 6. Chronic atrial for ablation. 7. CHF which is clinically compensated. 8. History of hypertension. 9. Mild leukocytosis. Continue current supportive care. Patient likely will need to have a G-tube or PEG tube placed. Consultation Date/Type/Reason Admit Date/Time Sep 24, 2018 at 14:46 Initial Consult Date 09/25/18 Type of Consult Pulmonary Patient is a 73-year-old male with history of dementia and VDR F transferred to the hospital because of inability to swallow for the last 2 days. Patient also was found to be dehydrated with possibly acute on chronic renal insufficiency. Because of poor mental status, patient was unable to give any history by himself whatsoever. History was obtained from medical records. Patient however did not appear to be in any distress whatsoever. Past medical history; 1. VDR F evidently due to COPD. 2. History of tracheostomy 3. History of seizure disorder. 4. Possibly baseline mild renal insufficiency. 5. Chronic atrial for ablation. 6. BPH. 7. History of colitis. 8. Possibly underlying CHF as well. Medications; reviewed. Allergies; vancomycin. Family history, social history, occupational history not available. Review of system; unable to be obtained. General exam; elderly male, fairly responsive. Trying to communicate with lip movements. Currently no distress. On ventilator via tracheostomy. Date/Time of Note DATE: 09/26/18 TIME: 09:40 24 HR Interval Summary Free Text/Dictation Patient's condition is stable. Remains awake and somewhat responsive. Has remained hemodynamically stable. General exam; elderly male, on ventilator via tracheostomy, awake, currently no distress. Exam/Review of Systems Exam Vitals Vital Signs Date Temp Pulse Resp B/P (MAP) Pulse Ox O2 O2 Flow FiO2 Time Delivery Rate 09/26/18 63 09:02 09/26/18 98.3 18 111/61 99 08:09 (78) 09/26/18 40 05:51 09/25/18 Mechanical 15:59 Ventilator Intake and Output 09/25/18 09/25/18 09/26/18 1515:00 23:00 07:00 IntakeIntake Total 150 ml 675 ml 1050 ml OutputOutput Total 400 ml 425 ml BalanceBalance 150 ml 275 ml 625 ml Exam H EENT exam; supple neck, no JVD. No lymphadenopathy. Midline trachea. No thyromegaly. Tracheostomy in place. Insertion site is clean. Chest exam; diminished but clear breath sounds. S1-S2 audible, no murmurs. Irregular rhythm. Abdomen exam; soft, nontender. Protuberant. No organomegaly. Bowel sounds audible. Extremity exam; no peripheral edema. 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 Results Result Diagram: 09/26/18 0553 09/26/18 0553 Results 24hrs Laboratory Tests Test 09/25/18 11:40 09/25/18 17:32 09/26/18 00:39 09/26/18 05:52 Bedside Glucose 128 115 142 140 Test 09/26/18 05:53 White Blood Count 17.6 #H Red Blood Count 3.92 L Hemoglobin 11.2 L Hematocrit 37.1 L Mean Corpuscular 94.6 Volume Mean Corpuscular 28.6 L Hemoglobin Mean Corpuscular 30.2 L Hemoglobin Concent Red Cell 14.8 H Distribution Width Platelet Count 276 Mean Platelet Volume 10.7 H Immature 0.500 H Granulocytes % Neutrophils % 82.5 H Lymphocytes % 10.0 L Monocytes % 3.0 Eosinophils % 3.8 Basophils % 0.2 Nucleated Red Blood 0.0 Cells % Immature 0.080 H Granulocytes # Neutrophils # 14.5 H Lymphocytes # 1.8 Monocytes # 0.5 Eosinophils # 0.7 H Basophils # 0.0 Nucleated Red Blood 0.0 Cells # Sodium Level 142 Potassium Level 3.6 Chloride Level 105 Carbon Dioxide Level 28 Anion Gap 9 Blood Urea Nitrogen 23 H Creatinine 1.64 H Est Glomerular Filtrat Rate mL/min Glucose Level 139 Calcium Level 9.0 Medications Medication Current Medications Insulin Aspart (Novolog Insulin Pen) NOVOLOG *MILD* ALGORI... Q6 SC Last administered on 09/26/18at 05:29; Admin Dose 1 UNIT; Start 09/24/18 at 18:00 Dextrose/Sodium Chloride 1,000 ml @ 75 mls/hr [id number] IV Last administered on 09/25/18at 18:33; Admin Dose 75 MLS/HR; Start 09/24/18 at 17:30 Miscellaneous Information 1 ea NOTE XX ; Start 09/24/18 at 17:30 Glucose (Glutose) 15 gm Q15M PRN PO DECREASED GLUCOSE; Start 09/24/18 at 17:30 Glucose (Glutose) 22.5 gm Q15M PRN PO DECREASED GLUCOSE; Start 09/24/18 at 17:30 Dextrose (D50w Syringe) 25 ml Q15M PRN IV DECREASED GLUCOSE; Start 09/24/18 at 17:30 Dextrose (D50w Syringe) 50 ml Q15M PRN IV DECREASED GLUCOSE; Start 09/24/18 at 17:30 Glucagon (Glucagen) 1 mg Q15M PRN IM DECREASED GLUCOSE; Start 09/24/18 at 17:30 Glucose (Glutose) 15 gm Q15M PRN BUCCAL DECREASED GLUCOSE; Start 09/24/18 at 1 7:30 Bisacodyl (Dulcolax Supp) 10 mg DAILY PRN [place] CONSTIPATION; Start 09/24/18 at 17:30 Clobetasol Propionate (Temovate 0.05% Oint) 1 applic BID TOP Last administered on 09/25/18at 22:50; Admin Dose 1 APPLIC; Start 09/24/18 at 21:00 Levetiracetam 100 ml @ 400 mls/hr BID IVPB Last administered on 09/25/18at 22:05; Admin Dose 400 MLS/HR; Start 09/24/18 at 21:00 Hydralazine HCl (Apresoline) 20 mg Q6H PRN IV for SBP above 160; Start 09/24/18 at 17:30 Levothyroxine Sodium (Synthroid Iv) 25 mcg QAM IV Last administered on 09/26/18at 05:46; Admin Dose 25 MCG; Start 09/25/18 at 06:00 Pantoprazole (Protonix Iv) 40 mg DAILY@06 IV Last administered on 09/26/18at 05:46; Admin Dose 40 MG; Start 09/25/18 at 06:00 Enoxaparin Sodium (Lovenox) 40 mg DAILY SC Last administered on 09/25/18at 09:48; Admin Dose 40 MG; Start 09/25/18 at 09:00 Miscellaneous Information (Pending Santyl Order For Wound Care) This patient stuart... PRN PRN XX WOUND CARE; Start 09/24/18 at 20:00 Cefepime HCl 50 ml @ 100 mls/hr Q12 IVPB Last administered on 09/25/18at 23:06; Admin Dose 100 MLS/HR; Start 09/25/18 at 09:00 AYAD HERRON Sep 26, 2018 09:43
[2018-09-26] MEDS: CLOBETASOL 0.05% 15 GM OINT TOP SCH ×2 (09:50→22:04)
[2018-09-26] MEDS: CEFEPIME 1GM/50 ML (PMX) 50 ML IVPB SCH ×2 (09:59→22:31)
[2018-09-26] MEDS: BALSAM PERU/CASTOR OIL 60 GM TUBE TOP SCH ×2 (09:59→22:03)
[2018-09-26] MEDS: DEXTROSE 5%-0.45% NACL 1,000 ML IV SCH (10:01)
[2018-09-26] MEDS: ENOXAPARIN 40 MG/0.4 ML SYG SC SCH (10:34)
--- NOTE | 2018-09-26 12:51 | NUR ---
ST NOTE; spoke with radiology in am (Silvia); they did not have time to schedule as busy; unsure if video can get on today prior to st leaving at 14:30. if unable to get on today must be rescheduled for yariel preferred am
[2018-09-26] MEDS: MUPIROCIN 2% 22 GM OINT TOP SCH ×2 (14:43→22:03)
--- NOTE | 2018-09-26 17:43 | PN ---
Date/Time of Note Date/Time of Note DATE: 09/26/18 TIME: 17:41 Assessment/Plan VTE Prophylaxis Risk score (from [facility] [place])>0 risk: 8 SCD applied (from [facility] [place]): No SCD contraindicated: low risk/ambulating Pharmacological prophylaxis: NA/contraindicated Pharm contraindication: low risk/ambulating Lines/Catheters IV Catheter Type (from [facility] [place]): Peripheral IV Urinary Cath still in place: No Assessment/Plan Hospital Course Hospital Course 1. Dysphagia.Pt creatinine 2 years ago was normal. Xray chest reveals: Atelectasis versus mild infiltrates in the right lower lobe. Rule out aspiration 2. Chronic respiratory failure, status post tracheostomy. 3. Normocytic hypochromic anemia. 4. DM type ii 5. History of hypertension. 6. History of previous dysphagia. 7. History of nontoxic megacolon. 8. History of hypertension. 9. History of hyperlipidemia. 10. Overweight 11. History of long-term mechanical ventilation 12. History of chronic obstructive pulmonary disease. 13. Seborrhea 14. Hx of afib, pt was on Eliquis 15. Hx of BPH 16. SIRS, elevated wbc. possible aspirational pneumonia Assessment/Plan -NPO -video swallow eval -DVT prophylaxis Start Lovenox -GI prophylaxis Protonix IV -pulmonary consult, Dr. Nava to see the patient, called Dr Kemp, spoke to him. -valeria solorzano - cw cefepime -? g tube Result Diagram: 09/26/18 0553 09/26/18 0553 Results 24hrs Laboratory Tests Test 09/26/18 00:39 09/26/18 05:52 09/26/18 05:53 09/26/18 12:53 Bedside Glucose 142 140 99 White Blood Count 17.6 #H Red Blood Count 3.92 L Hemoglobin 11.2 L Hematocrit 37.1 L Mean Corpuscular 94.6 Volume Mean Corpuscular 28.6 L Hemoglobin Mean Corpuscular 30.2 L Hemoglobin Concent Red Cell 14.8 H Distribution Width Platelet Count 276 Mean Platelet Volume 10.7 H Immature 0.500 H Granulocytes % Neutrophils % 82.5 H Lymphocytes % 10.0 L Monocytes % 3.0 Eosinophils % 3.8 Basophils % 0.2 Nucleated Red Blood 0.0 Cells % Immature 0.080 H Granulocytes # Neutrophils # 14.5 H Lymphocytes # 1.8 Monocytes # 0.5 Eosinophils # 0.7 H Basophils # 0.0 Nucleated Red Blood 0.0 Cells # Sodium Level 142 Potassium Level 3.6 Chloride Level 105 Carbon Dioxide Level 28 Anion Gap 9 Blood Urea Nitrogen 23 H Creatinine 1.64 H Est Glomerular Filtrat Rate mL/min Glucose Level 139 Calcium Level 9.0 Subjective 24 Hr Interval Summary Free Text/Dictation waiting For video swallow. chest This x-ray is improved Exam/Review of Systems Exam Vitals Vital Signs Date Temp Pulse Resp B/P (MAP) Pulse Ox O2 O2 Flow FiO2 Time Delivery Rate 09/26/18 99.1 70 19 112/55 100 15:26 (74) 09/26/18 40 08:20 09/25/18 Mechanical 15:59 Ventilator Intake and Output 09/25/18 09/25/18 09/26/18 1515:00 23:00 07:00 IntakeIntake Total 150 ml 675 ml 1050 ml OutputOutput Total 400 ml 425 ml BalanceBalance 150 ml 275 ml 625 ml Exam Constitutional: alert, oriented Head: normocephalic ENMT: other (tracheostomy) Neck: supple Respiratory: crackles/rales Cardiovascular: regular rate and rhythm Results Results 24hrs Laboratory Tests Test 09/26/18 00:39 09/26/18 05:52 09/26/18 05:53 09/26/18 12:53 Bedside Glucose 142 140 99 White Blood Count 17.6 #H Red Blood Count 3.92 L Hemoglobin 11.2 L Hematocrit 37.1 L Mean Corpuscular 94.6 Volume Mean Corpuscular 28.6 L Hemoglobin Mean Corpuscular 30.2 L Hemoglobin Concent Red Cell 14.8 H Distribution Width Platelet Count 276 Mean Platelet Volume 10.7 H Immature 0.500 H Granulocytes % Neutrophils % 82.5 H Lymphocytes % 10.0 L Monocytes % 3.0 Eosinophils % 3.8 Basophils % 0.2 Nucleated Red Blood 0.0 Cells % Immature 0.080 H Granulocytes # Neutrophils # 14.5 H Lymphocytes # 1.8 Monocytes # 0.5 Eosinophils # 0.7 H Basophils # 0.0 Nucleated Red Blood 0.0 Cells # Sodium Level 142 Potassium Level 3.6 Chloride Level 105 Carbon Dioxide Level 28 Anion Gap 9 Blood Urea Nitrogen 23 H Creatinine 1.64 H Est Glomerular Filtrat Rate mL/min Glucose Level 139 Calcium Level 9.0 Medications Medication Current Medications Insulin Aspart (Novolog Insulin Pen) NOVOLOG *MILD* ALGORI... Q6 SC Last administered on 09/26/18at 05:29; Admin Dose 1 UNIT; Start 09/24/18 at 18:00 Dextrose/Sodium Chloride 1,000 ml @ 75 mls/hr [id number] IV Last administered on 09/26/18at 10:01; Admin Dose 75 MLS/HR; Start 09/24/18 at 17:30 Miscellaneous Information 1 ea NOTE XX ; Start 09/24/18 at 17:30 Glucose (Glutose) 15 gm Q15M PRN PO DECREASED GLUCOSE; Start 09/24/18 at 17:30 Glucose (Glutose) 22.5 gm Q15M PRN PO DECREASED GLUCOSE; Start 09/24/18 at 17:30 Dextrose (D50w Syringe) 25 ml Q15M PRN IV DECREASED GLUCOSE; Start 09/24/18 at 17:30 Dextrose (D50w Syringe) 50 ml Q15M PRN IV DECREASED GLUCOSE; Start 09/24/18 at 17:30 Glucagon (Glucagen) 1 mg Q15M PRN IM DECREASED GLUCOSE; Start 09/24/18 at 17:30 Glucose (Glutose) 15 gm Q15M PRN BUCCAL DECREASED GLUCOSE; Start 09/24/18 at 17:30 Bisacodyl (Dulcolax Supp) 10 mg DAILY PRN [place] CONSTIPATION; Start 09/24/18 at 17:30 Clobetasol Propionate (Temovate 0.05% Oint) 1 applic BID TOP Last administered on 09/26/18at 09:50; Admin Dose 1 APPLIC; Start 09/24/18 at 21:00 Levetiracetam 100 ml @ 400 mls/hr BID IVPB Last administered on 09/26/18at 09:39; Admin Dose 400 MLS/HR; Start 09/24/18 at 21:00 Hydralazine HCl (Apresoline) 20 mg Q6H PRN IV for SBP above 160; Start 09/24/18 at 17:30 Levothyroxine Sodium (Synthroid Iv) 25 mcg QAM IV Last administered on 09/26/18at 09:59; Admin Dose 25 MCG; Start 09/25/18 at 06:00 Pantoprazole (Protonix Iv) 40 mg DAILY@06 IV Last administered on 09/26/18at 05:46; Admin Dose 40 MG; Start 09/25/18 at 06:00 Enoxaparin Sodium (Lovenox) 40 mg DAILY SC Last administered on 09/26/18at 10:34; Admin Dose 40 MG; Start 09/25/18 at 09:00 Miscellaneous Information (Pending Santyl Order For Wound Care) This patient stuart. .. PRN PRN XX WOUND CARE; Start 09/24/18 at 20:00 Cefepime HCl 50 ml @ 100 mls/hr Q12 IVPB Last administered on 09/26/18at 09:59; Admin Dose 100 MLS/HR; Start 09/25/18 at 09:00 Mupirocin (Bactroban) 1 applic BID TOP Last administered on 09/26/18at 14:43; Admin Dose 1 APPLIC; Start 09/26/18 at 14:00 KADEEM MATHEW MD Sep 26, 2018 17:43
--- NOTE | 2018-09-26 18:22 | NUR ---
EOSS: Patient A/A make needs known, still NPO until video swallow done, f/u with Radiology, no schedule yet for him,will f/u in am.SR on monitor, suction PRN with thick whitish color phlegm. IV fluids, D51/2 NS @75cc/hr on going, all medications given, BS checked done. Reposition Q2hrs, wound care done as ordered. All needs attended. Will continue to monitor.
[2018-09-27] VITALS (22 sets, daily range): BP systolic 111–142; BP diastolic 57–91; PULSE 62–76; RESP 18–22
[2018-09-27] MEDS: DEXTROSE 5%-0.45% NACL 1,000 ML IV SCH ×4 (00:02→20:46)
[2018-09-27] MEDS: INSULIN ASPART [NOVOLOG] 3 ML PEN SC SCH ×4 (06:00→18:00)
[2018-09-27] MEDS: PANTOPRAZOLE 40 MG INJ IV SCH (06:09)
--- NOTE | 2018-09-27 07:54 | NUR ---
EOSS: No acute event overnight. Patient slept a few hours. No c/o pain. Trache care done. Oral care done. Patient tolerated procedure well. Assisted patient in turning Q2H. Wound care done. Endorsed.
[2018-09-27] MEDS: ENOXAPARIN 40 MG/0.4 ML SYG SC SCH (09:00)
[2018-09-27] MEDS: LEVETIRACETAM 1000 MG (PMX) 100 ML IVPB SCH ×2 (09:19→20:28)
[2018-09-27] MEDS: LEVOTHYROXINE 100 MCG VIAL IV SCH (09:22)
[2018-09-27] MEDS: CLOBETASOL 0.05% 15 GM OINT TOP SCH ×2 (09:23→20:29)
[2018-09-27] MEDS: MUPIROCIN 2% 22 GM OINT TOP SCH ×2 (09:23→20:29)
[2018-09-27] MEDS: BALSAM PERU/CASTOR OIL 60 GM TUBE TOP SCH ×2 (09:24→20:29)
[2018-09-27] MEDS: CEFEPIME 1GM/50 ML (PMX) 50 ML IVPB SCH ×2 (09:24→20:28)
--- NOTE | 2018-09-27 11:44 | CONS ---
Assessment/Plan Assessment/Plan Assessment/Plan (Daily) Ventilator setting; AC of 20, tidal volume 700, PEEP of 5, 40% FiO2. Assessment and recommendations; 1. Patient admitted from [facility] because of dysphagia with history of VD RF and possibly some element of encephalopathy. 2. Possibly some element of sepsis as well, patient does have leukocytosis, currently on cefepime. 3. History of colitis, CHF, chronic renal insufficiency and BPH. Continue current supportive care. Patient likely will need to have a G-tube or PEG tube placed. Will obtain CBC. If the patient has a normal white cell count I would recommend stopping antibiotic. Consultation Date/Type/Reason Admit Date/Time Sep 24, 2018 at 14:46 Initial Consult Date 09/25/18 Type of Consult Pulmonary Patient is a 73-year-old male with history of dementia and VDR F transferred to the hospital because of inability to swallow for the last 2 days. Patient also was found to be dehydrated with possibly acute on chronic renal insufficiency. Because of poor mental status, patient was unable to give any history by himself whatsoever. History was obtained from medical records. Patient however did not appear to be in any distress whatsoever. Past medical history; 1. VDR F evidently due to COPD. 2. History of tracheostomy 3. History of seizure disorder. 4. Possibly baseline mild renal insufficiency. 5. Chronic atrial for ablation. 6. BPH. 7. History of colitis. 8. Possibly underlying CHF as well. Medications; reviewed. Allergies; vancomycin. Family history, social history, occupational history not available. Review of system; unable to be obtained. General exam; elderly male, fairly responsive. Trying to communicate with lip movements. Currently no distress. On ventilator via tracheostomy. Date/Time of Note DATE: 09/27/18 TIME: 11:42 24 HR Interval Summary Free Text/Dictation Patient's condition is stable. Has remained hemodynamically stable. General exam; elderly male, on ventilator via tracheostomy, unresponsive, curr ently in no distress. Exam/Review of Systems Exam Vitals Vital Signs Date Temp Pulse Resp B/P (MAP) Pulse Ox O2 O2 Flow FiO2 Time Delivery Rate 09/27/18 78 20 96 30 11:06 09/27/18 98.7 111/57 08:21 (75) 09/25/18 Mechanical 15:59 Ventilator Intake and Output 09/26/18 09/26/1809/27/19 1515:00 23:00 07:00 IntakeIntake Total 1250 ml 100 ml 230 ml OutputOutput Total 800 ml 500 ml BalanceBalance 1250 ml -700 ml -270 ml Exam HEENT exam; supple neck, no JVD. No lymphadenopathy. Midline trachea. No thyromegaly. Tracheostomy in place. Insertion site is clean. Chest exam; diminished but clear breath sounds. S1-S2 audible, no murmurs. Regular rhythm. Abdomen exam; soft, no organomegaly. Nondistended. Bowel sounds audible. Extremity exam; no peripheral edema. 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 Results Result Diagram: 09/26/18 0553 09/26/18 0553 Results 24hrs Laboratory Tests Test 09/26/18 12:53 09/26/18 17:53 09/27/18 00:00 09/27/18 06:11 Bedside Glucose 99 118 116 122 Medications Medication Current Medications Insulin Aspart (Novolog Insulin Pen) NOVOLOG *MILD* ALGORI... Q6 SC Last administered on 09/26/18at 05:29; Admin Dose 1 UNIT; Start 09/24/18 at 18:00 Dextrose/Sodium Chloride 1,000 ml @ 75 mls/hr [id number] IV Last administered on 09/27/18at 03:10; Admin Dose 75 MLS/HR; Start 09/24/18 at 17:30 Miscellaneous Information 1 ea NOTE XX ; Start 09/24/18 at 17:30 Glucose (Glutose) 15 gm Q15M PRN PO DECREASED GLUCOSE; Start 09/24/18 at 17:30 Glucose (Glutose) 22.5 gm Q15M PRN PO DECREASED GLUCOSE; Start 09/24/18 at 17:30 Dextrose (D50w Syringe) 25 ml Q15M PRN IV DECREASED GLUCOSE; Start 09/24/18 at 17:30 Dextrose (D50w Syringe) 50 ml Q15M PRN IV DECREASED GLUCOSE; Start 09/24/18 at 17:30 Glucagon (Glucagen) 1 mg Q15M PRN IM DECREASED GLUCOSE; Start 09/24/18 at 17:30 Glucose (Glutose) 15 gm Q15M PRN BUCCAL DECREASED GLUCOSE; Start 09/24/18 at 17:30 Bisacodyl (Dulcolax Supp) 10 mg DAILY PRN [place] CONSTIPATION; Start 09/24/18 at 17:30 Clobetasol Propionate (Temovate 0.05% Oint) 1 applic BID TOP Last administered on 09/27/18 09:23; Admin Dose 1 APPLIC; Start 09/24/18 at 21:00 Levetiracetam 100 ml @ 400 mls/hr BID IVPB Last administered on 09/27/18 09:19; Admin Dose 400 MLS/HR; Start 09/24/18 at 21:00 Hydralazine HCl (Apresoline) 20 mg Q6H PRN IV for SBP above 160; Start 09/24/18 at 17:30 Levothyroxine Sodium (Synthroid Iv) 25 mcg QAM IV Last administered on 09/27/18 09:22; Admin Dose 25 MCG; Start 09/25/18 at 06:00 Pantoprazole (Protonix Iv) 40 mg DAILY@06 IV Last administered on 09/27/18 06:09; Admin Dose 40 MG; Start 09/25/18 at 06:00 Enoxaparin Sodium (Lovenox) 40 mg DAILY SC Last administered on 09/26/18 10:34; Admin Dose 40 MG; Start 09/25/18 at 09:00 Miscellaneous Information (Pending Santyl Order For Wound Care) This patient stuart... PRN PRN XX WOUND CARE; Start 09/24/18 at 20:00 Cefepime HCl 50 ml @ 100 mls/hr Q12 IVPB Last administered on 09/27/18 09:24; Admin Dose 100 MLS/HR; Start 09/25/18 at 09:00 Mupirocin (Bactroban) 1 applic BID TOP Last administered on 09/27/18 09:23; Admin Dose 1 APPLIC; Start 09/26/18 at 14:00 AYAD HERRON Sep 27, 2018 11:44
[2018-09-27] MEDS ORDERED: BARIUM SULFATE 135 ML (E-Z HD) PO ONE (12:45)
--- NOTE | 2018-09-27 12:45 | NUR ---
Dr. Howe made aware re: when you suction patient with specks of blood, Lovenox held.
--- NOTE | 2018-09-27 12:50 | NUR ---
Patient with large bm, blackish in color, Dr. Howe on the floor and made aware,
--- NOTE | 2018-09-27 13:08 | PN ---
Date/Time of Note Date/Time of Note DATE: 09/27/18 TIME: 12:58 Assessment/Plan VTE Prophylaxis Risk score (from [facility])>0 risk: 6 SCD applied (from [facility]): No SCD contraindicated: low risk/ambulating Pharmacological prophylaxis: NA/contraindicated Pharm contraindication: low risk/ambulating Lines/Catheters IV Catheter Type (from [facility]): Peripheral IV Urinary Cath still in place: No Assessment/Plan Hospital Course Hospital Course 1. Dysphagia.Pt creatinine 2 years ago was normal. Xray chest reveals: Atelectasis versus mild infiltrates in the right lower lobe. Rule out aspiration, Chest xray improved 2. Chronic respiratory failure, status post tracheostomy. 3. Normocytic hypochromic anemia. 4. DM type ii 5. History of hypertension. 6. History of previous dysphagia. 7. History of nontoxic megacolon. 8. History of hypertension. 9. History of hyperlipidemia. 10. Overweight 11. History of long-term mechanical ventilation 12. History of chronic obstructive pulmonary disease. 13. Seborrhea 14. Hx of afib, pt was on Eliquis 15. Hx of BPH 16. SIRS, elevated wbc. possible aspirational pneumonia 17 ? GI bleed Assessment/Plan -NPO -video swallow eval today - ? G tube - hold lovenox - cw PPI - GI consult -DVT prophylaxis Start Lovenox -GI prophylaxis Protonix IV -valeria keppra - cw cefepime -? g tube pending video studies Result Diagram: 09/27/18 1204 09/26/18 0553 Results 24hrs Laboratory Tests Test 09/26/18 17:53 09/27/18 00:00 09/27/18 06:11 09/27/18 12:04 Bedside Glucose 118 116 122 White Blood Count 15.6 H Red Blood Count 3.76 L Hemoglobin 10.7 L Hematocrit 35.1 L Mean Corpuscular 93.4 Volume Mean Corpuscular 28.5 L Hemoglobin Mean Corpuscular 30.5 L Hemoglobin Concent Red Cell 14.9 H Distribution Width Platelet Count 266 Mean Platelet Volume 10.6 H Immature 0.400 Granulocytes % Neutrophils % 80.6 H Lymphocytes % 11.2 L Monocytes % 3.3 Eosinophils % 4.2 Basophils % 0.3 Nucleated Red Blood 0.0 Cells % Immature 0.070 H Granulocytes # Neutrophils # 12.6 H Lymphocytes # 1.8 Monocytes # 0.5 Eosinophils # 0.7 H Basophils # 0.1 Nucleated Red Blood 0.0 Cells # Test 09/27/18 12:17 Bedside Glucose 109 Subjective 24 Hr Interval Summary Free Text/Dictation Per RN +large black bm today going to video swallow today trach bloody secretion Exam/Review of Systems Exam Vitals Vital Signs Date Temp Pulse Resp B/P (MAP) Pulse Ox O2 O2 Flow FiO2 Time Delivery Rate 09/27/18 72 12:56 09/27/18 99.1 19 125/60 95 11:58 (81) 09/27/18 30 11:06 09/25/18 Mechanical 15:59 Ventilator Intake and Output 09/26/18 09/26/18 09/27/18 1515:00 23:00 07:00 IntakeIntake Total 1250 ml 100 ml 230 ml OutputOutput Total 800 ml 500 ml BalanceBalance 1250 ml -700 ml -270 ml Exam Constitutional: alert, oriented Head: normocephalic ENMT: other (tracheostomy) Neck: supple Respiratory: dec breath sounds bases Cardiovascular: regular rate and rhythm Results Results 24hrs Laboratory Tests Test 09/26/18 17:53 09/27/18 00:00 09/27/18 06:11 09/27/18 12:04 Bedside Glucose 118 116 122 White Blood Count 15.6 H Red Blood Count 3.76 L Hemoglobin 10.7 L Hematocrit 35.1 L Mean Corpuscular 93.4 Volume Mean Corpuscular 28.5 L Hemoglobin Mean Corpuscular 30.5 L Hemoglobin Concent Red Cell 14.9 H Distribution Width Platelet Count 266 Mean Platelet Volume 10.6 H Immature 0.400 Granulocytes % Neutrophils % 80.6 H Lymphocytes % 11.2 L Monocytes % 3.3 Eosinophils % 4.2 Basophils % 0.3 Nucleated Red Blood 0.0 Cells % Immature 0.070 H Granulocytes # Neutrophils # 12.6 H Lymphocytes # 1.8 Monocytes # 0.5 Eosinophils # 0.7 H Basophils # 0.1 Nucleated Red Blood 0.0 Cells # Test 09/27/18 12:17 Bedside Glucose 109 Medications Medication Current Medications Insulin Aspart (Novolog Insulin Pen) NOVOLOG *MILD* ALGORI... Q6 SC Last administered on 09/26/18at 05:29; Admin Dose 1 UNIT; Start 09/24/18 at 18:00 Dextrose/Sodium Chloride 1,000 ml @ 75 mls/hr [id number] IV Last administered on 09/27/18at 03:10; Admin Dose 75 MLS/HR; Start 09/24/18 at 17:30 Miscellaneous Information 1 ea NOTE XX ; Start 09/24/18 at 17:30 Glucose (Glutose) 15 gm Q15M PRN PO DECREASED GLUCOSE; Start 09/24/18 at 17:30 Glucose (Glutose) 22.5 gm Q15M PRN PO DECREASED GLUCOSE; Start 09/24/18 at 17:30 Dextrose (D50w Syringe) 25 ml Q15M PRN IV DECREASED GLUCOSE; Start 09/24/18 at 17:30 Dextrose (D50w Syringe) 50 ml Q15M PRN IV DECREASED GLUCOSE; Start 09/24/18 at 17:30 Glucagon (Glucagen) 1 mg Q15M PRN IM DECREASED GLUCOSE; Start 09/24/18 at 17:30 Glucose (Glutose) 15 gm Q15M PRN BUCCAL DECREASED GLUCOSE; Start 09/24/18 at 17:30 Bisacodyl (Dulcolax Supp) 10 mg DAILY PRN [place] CONSTIPATION; Start 09/24/18 at 17:30 Clobetasol Propionate (Temovate 0.05% Oint) 1 applic BID TOP Last administered on 09/27/18at 09:23; Admin Dose 1 APPLIC; Start 09/24/18 at 21:00 Levetiracetam 100 ml @ 400 mls/hr BID IVPB Last administered on 09/27/18at 09:19; Admin Dose 400 MLS/HR; Start 09/24/18 at 21:00 Hydralazine HCl (Apresoline) 20 mg Q6H PRN IV for SBP above 160; Start 09/24/18 at 17:30 Levothyroxine Sodium (Synthroid Iv) 25 mcg QAM IV Last administered on 09/27/18at 09:22; Admin Dose 25 MCG; Start 09/25/18 at 06:00 Pantoprazole (Protonix Iv) 40 mg DAILY@06 IV Last administered on 09/27/18at 06:09; Admin Dose 40 MG; Start 09/25/18 at 06:00 Miscellaneous Information (Pending [facility] Order For Wound Care) This patient stuart... PRN PRN XX WOUND CARE; Start 09/24/18 at 20:00 Cefepime HCl 50 ml @ 100 mls/hr Q12 IVPB Last administered on 09/27/18at 09:24; Admin Dose 100 MLS/HR; Start 09/25/18 at 09:00 Mupirocin (Bactroban) 1 applic BID TOP Last administered on 09/27/18at 09:23; Admin Dose 1 APPLIC; Start 09/26/18 at 14:00 KADEEM MATHEW MD Sep 27, 2018 13:08
--- NOTE | 2018-09-27 13:54 | NUR ---
ST NOTE: video swallow study completed; pt awake,alert and able to follow; difficult to reposition as pt shoulders dense; readjusted til best view of the airway obtained. oral phase; premature spillage with liquids and overflow into the p.sinuses with liquids via cup and straw; mild spillage and overflow with puree and soft and solids; nectar via straw pen and aspirated before/during the swallow sec. to timing of the swallow and airway closure; pt with good mastication with soft and solids; able to form a cohesive bolus and transport; pharyngeal phase: mildly decreased tongue base retraction resulting in residue in the valleculae and mild/mod residue in the p.sinuses and noted to have more residue at the cricopharyngeus with soft and reg.solids; suspect sec. to coordination of breathing/swallowing with the vent resulting in discoordinated swallow placing pt high risk for asp valeria with liquids via cup and straw. pt penetrated puree but not deep and ejected from the airway. soft and solids; pen. but no aspiration and ejected from the airway. nectar via spoon first swallow good timing of the swallow and not pen/asp. 6 trials given. nectar via cup x5 with continued trials increased pen. but no aspiration. nectar via straw aspirated SILENTLY before/during the swallow sec. to decreased control and timing of airway closure thin via spoon x5; transient pen. but no aspiration; thin via cup; multiple trials given with upon rewatched deep penetration but cleared. thin single sip penetrated but no aspiration but on second trial and asked pt to do effortful swallow reduced pen. but inconsistent; thin via straw single sip pen. second trial aspirated during the swallow as pt took sequential sips thin straw and lost control and airway not closed resulted in asp. SILENT. REC. PUREE DIET with NECTAR THICK VIA SPOON. alt. food/liquids; pills with puree; aspiration precautions. monitor closely; no straws; trials to advance to soft with st and trials thin with st. reviewed video with pt. prognosis god for returning back to solids and thin liquids; st to follow for dysphagia therapy; train effortful swallow; pt/family eduction and training.
--- NOTE | 2018-09-27 14:02 | CONS ---
DATE OF ADMISSION: 09/24/2018 DATE OF CONSULTATION: 09/27/2018 TYPE OF CONSULTATION: Cardiology. REASON FOR CONSULTATION: Hypertension, history of atrial fibrillation. REQUESTING PHYSICIAN: Ora Howe MD HISTORY OF PRESENT ILLNESS: Mr. Brown is a 73-year-old male with a history of COPD, subsequent ch ronic respiratory failure, status post tracheostomy, atrial fibrillation, BPH, seizure disorder, lashonda estive heart failure with preserved EF, who presented with difficulty swallowing. Upon arrival initi [facility] temperature was 99.1, blood pressure 142/70, pulse 84, respiratory rate 18, satting 98%. The [facility]'s labs revealed a white blood cell count of , hemoglobin 10.7, platelet count 275, sodium of 144, potassium 3.8, creatinine 1.47, BUN of 20, troponin negative, BNP of 132. The patient underw ent a chest x-ray revealing central pulmonary vascular congestion, interstitial prominence in both keri ngs, retrocardiac opacity, possible left lower lobe atelectasis versus infiltrate. The patient was s ubsequently admitted to the floor and since admit to the floor, has been given antibiotic therapy wit h slow improvement in symptoms. PAST MEDICAL HISTORY: As above in HPI. MEDICATIONS CURRENTLY IN HOSPITAL: 1. Mupirocin. 2. Cefepime. 3. Synthroid. 4. Protonix. 5. Keppra. 6. IV fluid of 75 mL an hour. ALLERGIES: VANCOMYCIN. SOCIAL HISTORY: Prior tobacco, none currently. No EtOH or illicit drug use. FAMILY HISTORY: No history of sudden cardiac or early CAD. REVIEW OF SYSTEMS: As above in HPI. CONSTITUTIONAL: No fevers, chills. PULMONARY: Chronic respiratory failure with trach. GASTROINTESTINAL: Dysphagia. GENITOURINARY: Renal failure. PSYCHIATRIC: No documented psych history. NEUROLOGIC: No documented CVA. ENDOCRINE: Diabetes mellitus, hypothyroidism. PHYSICAL EXAMINATION: VITAL SIGNS: Temperature of 99.1, blood pressure 125/60, pulse 69, respiratory rate 19, satting 95%. GENERAL: The patient is alert, awake, in no acute distress. NECK: Tracheostomy in place. CHEST: Upper airway transmitted rhonchorous sounds. HEART: Regular rate and rhythm. Normal S1, increased S2, I/ systolic murmur, nondisplaced PMI. ABDOMEN: Positive bowel sounds, soft. EXTREMITIES: No significant pitting edema, 1+ pulses bilateral posterior tibial. LABORATORIES: Most recently from today, sodium 142, potassium 3.6, creatinine 1.64, BUN of 23. Whit e blood cell count of 15.6, hemoglobin 10.7, platelet count of 266. IMAGING STUDIES: Chest x-ray from 09/27/2018 is now revealing improved atelectasis at the left lung base, but chronic changes throughout the lungs, tracheostomy tube in good place. IMPRESSION: 1. History of paroxysmal atrial fibrillation, assess for recurrent rhythm. 2. Abnormal electrocardiogram, assess for acute coronary syndrome. 3. Congestive heart failure by chest x-ray on admit, currently improved, likely diastolic, acute on chronic by history. 4. Chronic respiratory failure, status post trach. 5. Dysphagia, difficulty swallowing reason for admit. 6. Possible pneumonia, possible aspiration. 7. Hypothyroidism. 8. Diabetes mellitus. 9. Anemia. 10. Renal failure. RECOMMENDATIONS: 1. At this time, we would maintain the patient on telemetry monitoring to follow rhythm and rate con trol closely. 2. We will continue the patient antibiotics and follow up all culture data and respiratory status cl osely. 3. We would follow the patient's volume status closely and IV fluid hydration. Check a BNP to [facility] assess the patient's current volume status and we will check a 2D echo to reassess patient's eject ion fraction, wall motion or any major valve abnormalities. 4. We would check serial EKGs to assess for any significant ongoing changes, an EKG in morning, EKG for any complaints of chest pain or change in rhythm and we will complete rule out for myocardial inf arction to ensure the patient's EKG abnormalities are chronic in nature and not due to any recent acu te coronary syndromes as the patient does have 1 negative troponin. 5. Continue the patient's Keppra. 6. Possible need for G-tube placement with ongoing swallowing evaluation. Thank you for allowing me to take part in the care of this patient. I will continue to follow him ve ry closely with you with further recommendations to be made as [facility] Dictated By: JACK GONZALEZ/JENN Conf#: [id number] DID#: [id number] CC: ORA HOWE;*End*
--- NOTE | 2018-09-27 16:13 | CONS ---
DATE OF ADMISSION: 09/24/2018 DATE OF CONSULTATION: TYPE OF CONSULTATION: Gastroenterology. HISTORY OF PRESENT ILLNESS: The patient is a 73-year-old male admitted to the emergency room for dys phagia. He is known to have COPD, chronic respiratory failure, hypertension, hyperlipidemia, status post tracheostomy, has been having difficulty in swallowing for the last 2 to 3 days. The patient wa s able to eat normally without any problem. He is not a very good historian. No chest pain, no shor tness of breath, no or CONCRETE SPREADER problem, no GI bleeding. PAST MEDICAL HISTORY: Hypertension, diabetes mellitus, nontoxic megacolon, dyslipidemia, COPD, atria l fibrillation and chronic anemia. MEDICATIONS: He was on Eliquis. PHYSICAL EXAMINATION GENERAL: Well-built, nourished, not in distress. VITAL SIGNS: Stable. HEENT: Unremarkable. NECK: Supple. No thyromegaly, no lymphadenopathy. CARDIOVASCULAR: No murmur. LUNGS: No wheeze. ABDOMEN: Benign. EXTREMITIES: No pedal edema. LABORATORY DATA: His WBC is 15.6, hematocrit is 35, creatinine is 1.64. DIAGNOSTIC DATA: The patient had a chest x-ray which shows atelectasis, tracheostomy tube and chroni c changes throughout the lung. IMPRESSION: 1. Dysphagia. 2. Vent dependent respiratory failure. 3. Chronic obstructive pulmonary disease. 4. Atrial fibrillation. 5. Seizure disorder. 6. Renal insufficiency. 7. Benign prostatic hypertrophy. 8. Diabetes mellitus. 9. History of nontoxic megacolon. PLAN: At this point is to review the swallow study which was done. Continue antibiotics. I would r patrai from blood thinner in case the patient requires a G-tube placement and to continue present car e. Dictated By: TITUS MEDINA/NTS Conf#: [id number] DID#: [id number] CC: JACK CARRERO MD; KADEEM MATHEW;*EndCC*
--- NOTE | 2018-09-27 19:00 | NUR ---
EOSS: Patient on vent/trach tolerating well.SR on monitor. Video swallow done today, with recommendation, no diet ordered at this time. Reposition Q2hrs, wound care done as ordered. All needs attended. Will continue to monitor.
[2018-09-28] VITALS (21 sets, daily range): BP systolic 120–156; BP diastolic 58–69; PULSE 62–88; RESP 19–23
[2018-09-28] MEDS: LEVALBUTEROL (NEB) 1.25 MG/0.5 ML AMP HHN PRN (02:10)
[2018-09-28] MEDS: INSULIN ASPART [NOVOLOG] 3 ML PEN SC SCH ×4 (06:00→17:14)
[2018-09-28] MEDS: PANTOPRAZOLE 40 MG INJ IV SCH (06:25)
--- NOTE | 2018-09-28 06:55 | NUR ---
NURSE'S NOTES: Pt resting comfortably with stable VS; maintained on bedrest for generalized weakness. Tracheostomy connected to mechanical ventilator tolerating well; suctioned as needed. Tracheostomy care rendered. Denied any discomfort. Strict isolation precaution observed secondary to medical condition. No s/sx of hypo/hyperglycemia. Call light in reach. Bed alarm on. Kept clean and comfortable. Turned and repositioned q2hrs and as needed. All needs anticipated and attended promptly. Endorsed care to Taylor Posadas RN, in stable condition.
[2018-09-28] MEDS: LEVETIRACETAM 1000 MG (PMX) 100 ML IVPB SCH ×2 (09:24→20:12)
[2018-09-28] MEDS: LEVOTHYROXINE 100 MCG VIAL IV SCH (09:24)
[2018-09-28] MEDS: BALSAM PERU/CASTOR OIL 60 GM TUBE TOP SCH ×2 (09:25→20:13)
[2018-09-28] MEDS: MUPIROCIN 2% 22 GM OINT TOP SCH ×2 (09:25→20:13)
[2018-09-28] MEDS: CLOBETASOL 0.05% 15 GM OINT TOP SCH ×2 (09:26→20:13)
[2018-09-28] MEDS: DEXTROSE 5%-0.45% NACL 1,000 ML IV SCH (09:26)
--- NOTE | 2018-09-28 09:35 | CONS ---
Assessment/Plan Assessment/Plan Assessment/Plan (Daily) Ventilator setting; AC of 20, tidal volume 700, PEEP of 5, 30% FiO2. Chest x-ray was reviewed from yesterday which is essentially unremarkable. Assessment recommendations; 1. Patient with history of VD RF admitted for dysphagia, patient also had acute encephalopathy with marked overall improvement. Possibly some element of sepsis, patient did exhibit leukocytosis on admission which is persistent despite being on cefepime. No obvious source of infection identified. 2. Other comorbidities include history of seizure disorder, hypothyroidism, history of colitis, mild chronic renal insufficiency with acute injury with improvement in renal function. History of BPH as well. 3. Possibly some element of dehydration leading to altered mental status. Consider stopping antibiotics. Consider discharge if the patient passes swallow evaluation. May benefit from a G-tube placement. Consultation Date/Type/Reason Admit Date/Time Sep 24, 2018 at 14:46 Initial Consult Date 09/25/18 Type of Consult Pulmonary Patient is a 73-year-old male with history of dementia and VDR F transferred to the hospital because of inability to swallow for the last 2 days. Patient also was found to be dehydrated with possibly acute on chronic renal insufficiency. Because of poor mental status, patient was unable to give any history by himself whatsoever. History was obtained from medical records. Patient however did not appear to be in any distress whatsoever. Past medical history; 1. VDR F evidently due to COPD. 2. History of tracheostomy 3. History of seizure disorder. 4. Possibly baseline mild renal insufficiency. 5. Chronic atrial for ablation. 6. BPH. 7. History of colitis. 8. Possibly underlying CHF as well. Medications; reviewed. Allergies; vancomycin. Family history, social history, occupational history not available. Review of system; unable to be obtained. General exam; elderly male, fairly responsive. Trying to communicate with lip movements. Currently no distress. On ventilator via tracheostomy. Date/Time of Note DATE: 09/28/18 TIME: 09:32 24 HR Interval Summary Free Text/Dictation Patient's condition is continually improving. There is marked improvement in mental status. Patient denies any shortness of breath. He wants to eat again. General exam; elderly male, on ventilator via tracheostomy, awake and alert. Currently in no distress. Exam/Review of Systems Exam Vitals Vital Signs Date Temp Pulse Resp B/P (MAP) Pulse Ox O2 O2 Flow FiO2 Time Delivery Rate 09/28/18 66 08:42 09/28/18 20 100 07:47 09/28/18 98.4 129/60 07:08 (83) 09/28/18 30 05:14 09/28/18 Mechanical 04:00 Ventilator Intake and Output 09/27/18 09/27/18 09/28/18 1414:59 22:59 06:59 IntakeIntake Total 150 ml 600 ml OutputOutput Total 800 ml BalanceBalance 150 ml -200 ml Exam HEENT exam; supple neck, no JVD. No lymphadenopathy. Midline trachea. No thyromegaly. Patient is edentulous. Tracheostomy in place. Insertion site is clean. Chest exam; clear to auscultation. S1-S2 audible, no murmurs. Regular rhythm. Abdomen exam; soft, mildly protuberant. Nontender. Bowel sounds audible. No o rganomegaly. Extremity exam; no peripheral edema or clubbing. BURGLAR ALARM MECHANIC exam; no focal deficit. Results Result Diagram: 09/28/1828 09/28/1828 Results 24hrs Laboratory Tests Test 09/27/18 12:04 09/27/18 12:17 09/27/18 14:17 09/27/18 18:46 White Blood Count 15.6 H Red Blood Count 3.76 L Hemoglobin 10.7 L Hematocrit 35.1 L Mean Corpuscular 93.4 Volume Mean Corpuscular 28.5 L Hemoglobin Mean Corpuscular 30.5 L Hemoglobin Concent Red Cell 14.9 H Distribution Width Platelet Count 266 Mean Platelet Volume 10.6 H Immature 0.400 Granulocytes % Neutrophils % 80.6 H Lymphocytes % 11.2 L Monocytes % 3.3 Eosinophils % 4.2 Basophils % 0.3 Nucleated Red Blood 0.0 Cells % Immature 0.070 H Granulocytes # Neutrophils # 12.6 H Lymphocytes # 1.8 Monocytes # 0.5 Eosinophils # 0.7 H Basophils # 0.1 Nucleated Red Blood 0.0 Cells # Bedside Glucose 109 115 B-Type Natriuretic 176 Peptide Thyroid Stimulating 6.050 H Hormone (TSH) Test 09/27/18 19:19 09/28/18 00:23 09/28/18 00:58 09/28/18 05:28 Hemoglobin 10.5 L 10.4 L Creatine Kinase 45 44 43 Creatine Kinase 1.5 1.3 1.3 Index Creatinine Kinase MB 0.67 0.56 0.57 (Mass) Troponin I < 0.012 < 0.012 < 0.012 Bedside Glucose 135 White Blood Count 12.4 #H Red Blood Count 3.60 L Hematocrit 33.6 L Mean Corpuscular 93.3 Volume Mean Corpuscular 28.9 L Hemoglobin Mean Corpuscular 31.0 L Hemoglobin Concent Red Cell 14.7 H Distribution Width Platelet Count 279 Mean Platelet Volume 11.2 H Immature 0.400 Granulocytes % Neutrophils % 78.1 H Lymphocytes % 13.1 L Monocytes % 3.9 Eosinophils % 4.2 Basophils % 0.3 Nucleated Red Blood 0.0 Cells % Immature 0.050 H Granulocytes # Neutrophils # 9.7 H Lymphocytes # 1.6 Monocytes # 0.5 Eosinophils # 0.5 Basophils # 0.0 Nucleated Red Blood 0.0 Cells # Sodium Level 145 H Potassium Level 3.0 L Chloride Level 107 Carbon Dioxide Level 26 Anion Gap 12 Blood Urea Nitrogen 14 # Creatinine 1.19 Est Glomerular Filtrat Rate mL/min Glucose Level 137 Calcium Level 8.9 Test 09/28/18 06:23 Bedside Glucose 132 Medications Medication Current Medications Insulin Aspart (Novolog Insulin Pen) NOVOLOG *MILD* ALGORI... Q6 SC Last administered on 09/26/18at 05:29; Admin Dose 1 UNIT; Start 09/24/18 at 18:00 Dextrose/Sodium Chloride 1,000 ml @ 75 mls/hr [id number] IV Last administered on 09/28/18at 09:26; Admin Dose 75 MLS/HR; Start 09/24/18 at 17:30 Miscellaneous Information 1 ea NOTE XX ; Start 09/24/18 at 17:30 Glucose (Glutose) 15 gm Q15M PRN PO DECREASED GLUCOSE; Start 09/24/18 at 17:30 Glucose (Glutose) 22.5 gm Q15M PRN PO DECREASED GLUCOSE; Start 09/24/18 at 17:30 Dextrose (D50w Syringe) 25 ml Q15M PRN IV DECREASED GLUCOSE; Start 09/24/18 at 17:30 Dextrose (D50w Syringe) 50 ml Q15M PRN IV DECREASED GLUCOSE; Start 09/24/18 at 17:30 Glucagon (Glucagen) 1 mg Q15M PRN IM DECREASED GLUCOSE; Start 09/24/18 at 17:30 Glucose (Glutose) 15 gm Q15M PRN BUCCAL DECREASED GLUCOSE; Start 09/24/18 at 17:30 Bisacodyl (Dulcolax Supp) 10 mg DAILY PRN [place] CONSTIPATION; Start 09/24/18 at 17:30 Clobetasol Propionate (Temovate 0.05% Oint) 1 applic BID TOP Last administered on 09/28/18at 09:26; Admin Dose 1 APPLIC; Start 09/24/18 at 21:00 Levetiracetam 100 ml @ 400 mls/hr BID IVPB Last administered on 09/28/18at 09:24; Admin Dose 400 MLS/HR; Start 09/24/18 at 21:00 Hydralazine HCl (Apresoline) 20 mg Q6H PRN IV for SBP above 160; Start 09/24/18 at 17:30 Levothyroxine Sodium (Synthroid Iv) 25 mcg QAM IV Last administered on 09/28/18at 09:24; Admin Dose 25 MCG; Start 09/25/18 at 06:00 Pantoprazole (Protonix Iv) 40 mg DAILY@06 IV Last administered on 09/28/18at 06:25; Admin Dose 40 MG; Start 09/25/18 at 06:00 Miscellaneous Information [facility] This patient stuart... PRN PRN XX WOUND CARE; Start 09/24/18 at 20:00 Cefepime HCl 50 ml @ 100 mls/hr Q12 IVPB Last administered on 09/27/18at 20:28; Admin Dose 100 MLS/HR; Start 09/25/18 at 09:00 Mupirocin (Bactroban) 1 applic BID TOP Last administered on 09/28/18at 09:25; Admin Dose 1 APPLIC; Start 09/26/18 at 14:00 Levalbuterol (Xopenex Neb) 1.25 mg Q4H RESP THERAPY PRN HHN WHEEZING AND SOB Last administered on 09/28/18at 02:10; Admin Dose 1.25 MG; Start 09/28/18 at 01:00 Potassium Chloride 50 ml @ 25 mls/hr Q2H IVPB ; Start 09/28/18 at 09:30; Stop 1/31/19 at 13:29; Status UNV QARNI,AYAD Sep 28, 2018 09:35
[2018-09-28] MEDS: CEFEPIME 1GM/50 ML (PMX) 50 ML IVPB SCH (09:54)
[2018-09-28] MEDS: POTASSIUM CHLORIDE 50 ML IVPB SCH ×2 (10:26→13:48)
--- NOTE | 2018-09-28 11:05 | CONS ---
Assessment/Plan Assessment/Plan Hospital Course (Demo Recall) IMPRESSION: 1. History of paroxysmal atrial fibrillation, assess for recurrent arrythmia-currently in SR 2. Abnormal electrocardiogram, assess for acute coronary syndrome.-neg trop x 3 3. Congestive heart failure by chest x-ray on admit, currently improved, likely diastolic, acute on chronic by history. 4. Chronic respiratory failure, status post trach. 5. Dysphagia, difficulty swallowing reason for admit. 6. Possible pneumonia, possible aspiration. 7. Hypothyroidism. 8. Diabetes mellitus. 9. Anemia. 10. Renal failure. Recc: -Tele -Continue abx's and f/u cx data -Will f/u echo Consultation Date/Type/Reason Admit Date/Time Sep 24, 2018 at 14:46 Initial Consult Date 09/25/18 Type of Consult Cardiology Reason for Consultation PAF Requesting Provider: KADEEM MATHEW MD Date/Time of Note DATE: 09/28/18 TIME: 11:01 Exam/Review of Systems Vital Signs Vitals Vital Signs Date Temp Pulse Resp B/P (MAP) Pulse Ox O2 O2 Flow FiO2 Time Delivery Rate 09/28/18 68 20 100 09:30 09/28/18 98.4 129/60 07:08 (83) 09/28/18 30 05:14 09/28/18 Mechanical 04:00 Ventilator Intake and Output 09/27/18 09/27/18 09/28/18 1515:00 23:00 07:00 IntakeIntake Total 150 ml 600 ml OutputOutput Total 800 ml BalanceBalance 150 ml -200 ml Exam Exam Review of Systems: CONSTITUTIONAL: No fevers, chills. PULMONARY: No sob CARDIOVASCULAR: No chest pain/palpitations GASTROINTESTINAL: No nausea/vomiting. GENITOURINARY: No hematuria/dysuria. MUSCULOSKELETAL: No myagias/arthalgias. PSYCHIATRIC: The patient denies depression. NEUROLOGIC: No weakness Constitutional: alert Psych: no complaints Head: normocephalic ENMT: mucosa pink and moist Neck: supple, jvd (9 cm water) Respiratory: diminished breath sounds (at bases/B) Cardiovascular: regular rate and rhythm Gastrointestinal: soft, non-tender Musculoskeletal: muscle tone (normal) Extremities: edema (none) Neurological: other (No focal deficits) Labs Result Diagram: 09/28/1852709/28/18527 Results 24hrs Laboratory Tests Test 09/27/18 12:04 09/27/18 12:17 09/27/18 14:17 09/27/18 18:46 White Blood Count 15.6 H Red Blood Count 3.76 L Hemoglobin 10.7 L Hematocrit 35.1 L Mean Corpuscular 93.4 Volume Mean Corpuscular 28.5 L Hemoglobin Mean Corpuscular 30.5 L Hemoglobin Concent Red Cell 14.9 H Distribution Width Platelet Count 266 Mean Platelet Volume 10.6 H Immature 0.400 Granulocytes % Neutrophils % 80.6 H Lymphocytes % 11.2 L Monocytes % 3.3 Eosinophils % 4.2 Basophils % 0.3 Nucleated Red Blood 0.0 Cells % Immature 0.070 H Granulocytes # Neutrophils # 12.6 H Lymphocytes # 1.8 Monocytes # 0.5 Eosinophils # 0.7 H Basophils # 0.1 Nucleated Red Blood 0.0 Cells # Bedside Glucose 109 115 B-Type Natriuretic 176 Peptide Thyroid Stimulating 6.050 H Hormone (TSH) Test 09/27/18 19:19 09/28/18 00:23 09/28/18 00:58 09/28/18 05:28 Hemoglobin 10.5 L 10.4 L Creatine Kinase 45 44 43 Creatine Kinase 1.5 1.3 1.3 Index Creatinine Kinase MB 0.67 0.56 0.57 (Mass) Troponin I < 0.012 < 0.012 < 0.012 Bedside Glucose 135 White Blood Count 12.4 #H Red Blood Count 3.60 L Hematocrit 33.6 L Mean Corpuscular 93.3 Volume Mean Corpuscular 28.9 L Hemoglobin Mean Corpuscular 31.0 L Hemoglobin Concent Red Cell 14.7 H Distribution Width Platelet Count 279 Mean Platelet Volume 11.2 H Immature 0.400 Granulocytes % Neutrophils % 78.1 H Lymphocytes % 13.1 L Monocytes % 3.9 Eosinophils % 4.2 Basophils % 0.3 Nucleated Red Blood 0.0 Cells % Immature 0.050 H Granulocytes # Neutrophils # 9.7 H Lymphocytes # 1.6 Monocytes # 0.5 Eosinophils # 0.5 Basophils # 0.0 Nucleated Red Blood 0.0 Cells # Sodium Level 145 H Potassium Level 3.0 L Chloride Level 107 Carbon Dioxide Level 26 Anion Gap 12 Blood Urea Nitrogen 14 # Creatinine 1.19 Est Glomerular Filtrat Rate mL/min Glucose Level 137 Calcium Level 8.9 Test 09/28/18 06:23 Bedside Glucose 132 Medications Medications Current Medications Insulin Aspart (Novolog Insulin Pen) NOVOLOG *MILD* ALGORI... Q6 SC Last administered on 09/26/18at 05:29; Admin Dose 1 UNIT; Start 09/24/18 at 18:00 Dextrose/Sodium Chloride 1,000 ml @ 75 mls/hr [id number] IV Last administered on 09/28/18at 09:26; Admin Dose 75 MLS/HR; Start 09/24/18 at 17:30 Miscellaneous Information 1 ea NOTE XX ; Start 09/24/18 at 17:30 Glucose (Glutose) 15 gm Q15M PRN PO DECREASED GLUCOSE; Start 09/24/18 at 17:30 Glucose (Glutose) 22.5 gm Q15M PRN PO DECREASED GLUCOSE; Start 09/24/18 at 17:30 Dextrose (D50w Syringe) 25 ml Q15M PRN IV DECREASED GLUCOSE; Start 09/24/18 at 17:30 Dextrose (D50w Syringe) 50 ml Q15M PRN IV DECREASED GLUCOSE; Start 09/24/18 at 17:30 Glucagon (Glucagen) 1 mg Q15M PRN IM DECREASED GLUCOSE; Start 09/24/18 at 17:30 Glucose (Glutose) 15 gm Q15M PRN BUCCAL DECREASED GLUCOSE; Start 09/24/18 at 17:30 Bisacodyl (Dulcolax Supp) 10 mg DAILY PRN [place] CONSTIPATION; Start 09/24/18 at 17:30 Clobetasol Propionate (Temovate 0.05% Oint) 1 applic BID TOP Last administered on 09/28/18at 09:26; Admin Dose 1 APPLIC; Start 09/24/18 at 21:00 Levetiracetam 100 ml @ 400 mls/hr BID IVPB Last administered on 09/28/18at 09:24; Admin Dose 400 MLS/HR; Start 09/24/18 at 21:00 Hydralazine HCl (Apresoline) 20 mg Q6H PRN IV for SBP above 160; Start 09/24/18 at 17:30 Levothyroxine Sodium (Synthroid Iv) 25 mcg QAM IV Last administered on 09/28/18at 09:24; Admin Dose 25 MCG; Start 09/25/18 at 06:00 Pantoprazole (Protonix Iv) 40 mg DAILY@06 IV Last administered on 09/28/18at 06:25; Admin Dose 40 MG; Start 09/25/18 at 06:00 Miscellaneous Information (Pending [facility] Order For Wound Care) This patient stuart... PRN PRN XX WOUND CARE; Start 09/24/18 at 20:00 Cefepime HCl 50 ml @ 100 mls/hr Q12 IVPB Last administered on 09/28/18at 09:54; Admin Dose 100 MLS/HR; Start 09/25/18 at 09:00 Mupirocin (Bactroban) 1 applic BID TOP Last administered on 09/28/18at 09:25; Admin Dose 1 APPLIC; Start 09/26/18 at 14:00 Levalbuterol (Xopenex Neb) 1.25 mg Q4H RESP THERAPY PRN HHN WHEEZING AND SOB Last administered on 09/28/18at 02:10; Admin Dose 1.25 MG; Start 09/28/18 at 01:00 Potassium Chloride 50 ml @ 25 mls/hr Q2H IVPB Last administered on 09/28/18at 10:26; Admin Dose 25 MLS/HR; Start 09/28/18 at 10:30; Stop 09/28/18 at 14:29 JACK CARRERO Sep 28, 2018 11:05
--- NOTE | 2018-09-28 13:35 | CONS ---
Assessment/Plan Assessment/Plan Assessment/Plan (Daily) video swallow on 09/27 reviewed with speech pathologist EC. PUREE DIET with NECTAR THICK VIA SPOON. alt. food/liquids; pills with puree; aspiration precautions. monitor closely; no straws; trials to advance to soft with st and trials thin with st. reviewed video with pt. prognosis god for returning back to solids and thin liquids; st to follow for dysphagia therapy; train effortful swallow; pt/family eduction and training IMPRESSION: 1. Dysphagia.: liquids/straws result in aspiration, but pureed/nectar for now 2. Vent dependent respiratory failure. 3. Chronic obstructive pulmonary disease. 4. Atrial fibrillation. 5. Seizure disorder. 6. Renal insufficiency. 7. Benign prostatic hypertrophy. 8. Diabetes mellitus. 9. History of nontoxic megacolo Consultation Date/Type/Reason Admit Date/Time Sep 24, 2018 at 14:46 Initial Consult Date 09/25/18 Requesting Provider: KADEEM MATHEW MD Date/Time of Note DATE: 09/28/18 TIME: 13:30 Exam/Review of Systems Exam Vitals Vital Signs Date Temp Pulse Resp B/P (MAP) Pulse Ox O2 O2 Flow FiO2 Time Delivery Rate 09/28/18 77 20 99 12:54 09/28/18 98.4 143/69 11:20 (93) 09/28/18 30 05:14 09/28/18 Mechanical 04:00 Ventilator Intake and Output 09/27/18 09/27/18 09/28/18 1515:00 23:00 07:00 IntakeIntake Total 150 ml 600 ml OutputOutput Total 800 ml BalanceBalance 150 ml -200 ml Results Result Diagram: 09/28/18 0528 09/28/18 0528 Results 24hrs Laboratory Tests Test 09/27/18 14:17 09/27/18 18:46 09/27/18 19:19 09/28/18 00:23 B-Type Natriuretic 176 Peptide Thyroid Stimulating 6.050 H Hormone (TSH) Bedside Glucose 115 Hemoglobin 10.5 L Creatine Kinase 45 44 Creatine Kinase 1.5 1.3 Index Creatinine Kinase MB 0.67 0.56 (Mass) Troponin I < 0.012 < 0.012 Test 09/28/18 00:58 09/28/18 05:28 09/28/18 06:23 09/28/18 11:37 Bedside Glucose 135 132 100 White Blood Count 12.4 #H Red Blood Count 3.60 L Hemoglobin 10.4 L Hematocrit 33.6 L Mean Corpuscular 93.3 Volume Mean Corpuscular 28.9 L Hemoglobin Mean Corpuscular 31.0 L Hemoglobin Concent Red Cell 14.7 H Distribution Width Platelet Count 279 Mean Platelet Volume 11.2 H Immature 0.400 Granulocytes % Neutrophils % 78.1 H Lymphocytes % 13.1 L Monocytes % 3.9 Eosinophils % 4.2 Basophils % 0.3 Nucleated Red Blood 0.0 Cells % Immature 0.050 H Granulocytes # Neutrophils # 9.7 H Lymphocytes # 1.6 Monocytes # 0.5 Eosinophils # 0.5 Basophils # 0.0 Nucleated Red Blood 0.0 Cells # Sodium Level 145 H Potassium Level 3.0 L Chloride Level 107 Carbon Dioxide Level 26 Anion Gap 12 Blood Urea Nitrogen 14 # Creatinine 1.19 Est Glomerular Filtrat Rate mL/min Glucose Level 137 Calcium Level 8.9 Creatine Kinase 43 Creatine Kinase 1.3 Index Creatinine Kinase MB 0.57 (Mass) Troponin I < 0.012 Medications Medication Current Medications Insulin Aspart (Novolog Insulin Pen) NOVOLOG *MILD* ALGORI... Q6 SC Last a dministered on 09/26/18at 05:29; Admin Dose 1 UNIT; Start 09/24/18 at 18:00 Dextrose/Sodium Chloride 1,000 ml @ 75 mls/hr [id number] IV Last administered on 09/28/18at 09:26; Admin Dose 75 MLS/HR; Start 09/24/18 at 17:30 Miscellaneous Information 1 ea NOTE XX ; Start 09/24/18 at 17:30 Glucose (Glutose) 15 gm Q15M PRN PO DECREASED GLUCOSE; Start 09/24/18 at 17:30 Glucose (Glutose) 22.5 gm Q15M PRN PO DECREASED GLUCOSE; Start 09/24/18 at 17:30 Dextrose (D50w Syringe) 25 ml Q15M PRN IV DECREASED GLUCOSE; Start 09/24/18 at 17:30 Dextrose (D50w Syringe) 50 ml Q15M PRN IV DECREASED GLUCOSE; Start 09/24/18 at 17:30 Glucagon (Glucagen) 1 mg Q15M PRN IM DECREASED GLUCOSE; Start 09/24/18 at 17:30 Glucose (Glutose) 15 gm Q15M PRN BUCCAL DECREASED GLUCOSE; Start 09/24/18 at 17:30 Bisacodyl (Dulcolax Supp) 10 mg DAILY PRN [place] CONSTIPATION; Start 09/24/18 at 17:30 Clobetasol Propionate (Temovate 0.05% Oint) 1 applic BID TOP Last administered on 09/28/18at 09:26; Admin Dose 1 APPLIC; Start 09/24/18 at 21:00 Levetiracetam 100 ml @ 400 mls/hr BID IVPB Last administered on 09/28/18at 09:24; Admin Dose 400 MLS/HR; Start 09/24/18 at 21:00 Hydralazine HCl (Apresoline) 20 mg Q6H PRN IV for SBP above 160; Start 09/24/18 at 17:30 Levothyroxine Sodium (Synthroid Iv) 25 mcg QAM IV Last administered on 09/28/18at 09:24; Admin Dose 25 MCG; Start 09/25/18 at 06:00 Pantoprazole (Protonix Iv) 40 mg DAILY@06 IV Last administered on 09/28/18at 06:25; Admin Dose 40 MG; Start 09/25/18 at 06:00 Miscellaneous Information (Pending [facility] Order For Wound Care) This patient stuart... PRN PRN XX WOUND CARE; Start 09/24/18 at 20:00 Cefepime HCl 50 ml @ 100 mls/hr Q12 IVPB Last administered on 09/28/18at 09:54; Admin Dose 100 MLS/HR; Start 09/25/18 at 09:00 Mupirocin (Bactroban) 1 applic BID TOP Last administered on 09/28/18at 09:25; Admin Dose 1 APPLIC; Start 09/26/18 at 14:00 Levalbuterol (Xopenex Neb) 1.25 mg Q4H RESP THERAPY PRN HHN WHEEZING AND SOB Last administered on 09/28/18at 02:10; Admin Dose 1.25 MG; Start 09/28/18 at 01:00 Potassium Chloride 50 ml @ 25 mls/hr Q2H IVPB Last administered on 09/28/18at 10:26; Admin Dose 25 MLS/HR; Start 09/28/18 at 10:30; Stop 09/28/18 at 14:29 LONDON SPAIN MD Sep 28, 2018 13:35
--- NOTE | 2018-09-28 16:48 | NUR ---
Dysphagia/Swallow Therapy note: Clinical Bedside Swallow Evaluation Completed: Brief Hx: Mr. Bailey is a 73-year-old longterm resident with a history of COPD, chronic respiratory failure, hypertension, hyperlipidemia, obesity on mechanical ventilator, status post tracheostomy. He is normally able to eat and drink. He came in with difficulties swallowing for a 2 days. He reported sudden inability to swallow. Pt is a poor historian, able to say a few words. Denied chest pain, dysuria, cough, blood loss, melena, vomiting. PMHX: DM type ii, hypertension, previous dysphagia, nontoxic megacolon, hypertension and hyperlipidemia. Chest XR completed on 09/27/2018: IMPRESSION: 1. Improved atelectasis in the left lung base. 2. Stable benign chronic changes throughout the lungs. 3. Tracheostomy tube in good position without pneumothorax. 4. Atherosclerotic vascular calcifications. Vitals; temp: 98.5; RR: 18-20; SPO2: 98% on mechanical ventilator (A/C setting, Tidal Volume: 700; PEEP: 5); with XLT DCT#6 with cuff minimal inflation. Labs: WBC: 12.4H (maintained); PLOF at SNF: regular/thin liquids, however SNF reported over the phone that they were considering downgrading his diet due to difficulty with mastication the bolus due to being edentulous. Current: NPO+ rec diet from video swallow completed;NTL by teaspoon/puree. Video swallow completed on 09/27/2018: ASpiration was noted during and after the swallow with NTL and thin by straw, deep penetration with puree, which cleared out of the airway, transient penetration with thin liquids by teaspoon and penetration with NTL by cup but no aspiration. S: Pt was received awake, alert and stating, "I'm starving and want to eat." O: Rx plan was reviewed and tx consisted of the followin. improve swallow safety. 2. optimize oral care and hygiene management, +Xerostomia noted and clean/clear. nursing appreciated. 3. Reviewed the swallow video images with the pt so he can better understand why he is having more difficulty with swallowing a less restrictive liquid consistency more rapidly compared to his hospital admission. Pt verbalized that he likes to drink quickly and that this will take time to learn how to drink at a slower pace. 4. assess p.o intake with use of swallowing strategies: pt consumed single sips of thin liquid by teaspoon x 8, NTL by teaspoon x2 and cup x 8 w/ use of effortful swallow and puree with double dry swallow and liquid wash with thin liquids by teaspoon. SPO2 level and RR were maintained, as well as no overt s/s of aspiration or penetration noted. 5. consulted with GI MD to alert him that he does not PEG, consulted with RN regarding use of swallowing precautions and consulted wit RT regarding need for PMV evaluation and weaning him to less amount of O2 intake to help him better regulate his breath support during and after the swallow. 6. new swallowing precautions were posted above the pts HOB. 6. p.o status/diet consistency/level of supervision: initiate puree diet and NTL by cup, and thin liquids (water) by teaspoon is ok with feeder assistance and supervision. A: moderate oropharyngeal dysphagia associated with reduced base of tongue retraction, reduced timing of swallow, reduced hyolaryngeal excursion and elevation and reduced coordination of breath with swallow safety. Pt is safe to initiate a diet with strict use of aspiration precautions to prevent aspiration. P: 1. Continue Poc. 2. Continue with puree diet and NTL by cup/water by teaspoon is ok w/ feeder assistance and direct supervision. 3. monitor at mealtime
--- NOTE | 2018-09-28 16:53 | PN ---
Date/Time of Note Date/Time of Note DATE: 09/28/18 TIME: 16:51 Assessment/Plan VTE Prophylaxis Risk score (from Ns)>0 risk: 5 SCD applied (from [facility] [place]): Yes Pharmacological prophylaxis: NA/contraindicated Pharm contraindication: low risk/ambulating Lines/Catheters IV [facility] Peripheral IV Urinary Cath still in place: No Assessment/Plan Hospital Course Hospital Course 1. Dysphagia.Pt creatinine 2 years ago was normal. Xray chest reveals: Atelectasis versus mild infiltrates in the right lower lobe. Rule out aspiration, Chest xray improved 2. Chronic respiratory failure, status post tracheostomy. 3. Normocytic hypochromic anemia. 4. DM type ii 5. History of hypertension. 6. History of previous dysphagia. 7. History of nontoxic megacolon. 8. History of hypertension. 9. History of hyperlipidemia. 10. Overweight 11. History of long-term mechanical ventilation 12. History of chronic obstructive pulmonary disease. 13. Seborrhea 14. Hx of afib, pt was on Eliquis 15. Hx of BPH 16. SIRS, elevated wbc. possible aspirational pneumonia 17 ? GI bleed hb stable Assessment/Plan -NPO -video swallow e? silent aspiration per speech swallow> diet? nurse will check with speech and swallow recs -- hold lovenox - cw PPI -DVT prophylaxis -GI prophylaxis Protonix IV -valeria jeanine - dc abx - Result Diagram: 09/28/1828 09/28/1828 Results 24hrs Laboratory Tests Test 09/27/18 18:46 09/27/18 19:19 09/28/18 00:23 09/28/18 00:58 Bedside Glucose 115 135 Hemoglobin 10.5 L Creatine Kinase 45 44 Creatine Kinase 1.5 1.3 Index Creatinine Kinase MB 0.67 0.56 (Mass) Troponin I < 0.012 < 0.012 Test 09/28/18 05:28 09/28/18 06:23 09/28/18 11:37 White Blood Count 12.4 #H Red Blood Count 3.60 L Hemoglobin 10.4 L Hematocrit 33.6 L Mean Corpuscular 93.3 Volume Mean Corpuscular 28.9 L Hemoglobin Mean Corpuscular 31.0 L Hemoglobin Concent Red Cell 14.7 H Distribution Width Platelet Count 279 Mean Platelet Volume 11.2 H Immature 0.400 Granulocytes % Neutrophils % 78.1 H Lymphocytes % 13.1 L Monocytes % 3.9 Eosinophils % 4.2 Basophils % 0.3 Nucleated Red Blood 0.0 Cells % Immature 0.050 H Granulocytes # Neutrophils # 9.7 H Lymphocytes # 1.6 Monocytes # 0.5 Eosinophils # 0.5 Basophils # 0.0 Nucleated Red Blood 0.0 Cells # Sodium Level 145 H Potassium Level 3.0 L Chloride Level 107 Carbon Dioxide Level 26 Anion Gap 12 Blood Urea Nitrogen 14 # Creatinine 1.19 Est Glomerular Filtrat Rate mL/min Glucose Level 137 Calcium Level 8.9 Creatine Kinase 43 Creatine Kinase 1.3 Index Creatinine Kinase MB 0.57 (Mass) Troponin I < 0.012 Bedside Glucose 132 100 Subjective 24 Hr Interval Summary Free Text/Dictation video swallow ? aspiration but speech recommended ? diet Exam/Review of Systems Exam Vitals Vital Signs Date Temp Pulse Resp B/P (MAP) Pulse Ox O2 O2 Flow FiO2 Time Delivery Rate 09/28/18 78 16:00 09/28/18 98.4 19 156/68 97 15:59 (97) 09/28/18 30 05:14 09/28/18 Mechanical 04:00 Ventilator Intake and Output 09/27/18 09/27/18 09/28/18 1414:59 22:59 06:59 IntakeIntake Total 150 ml 600 ml OutputOutput Total 800 ml BalanceBalance 150 ml -200 ml Exam Constitutional: alert, oriented Head: normocephalic ENMT: other (tracheostomy) Neck: supple Respiratory: dec breath sounds bases Cardiovascular: regular rate and rhythm Results Results 24hrs Laboratory Tests Test 09/27/18 18:46 09/27/18 19:19 09/28/18 00:23 09/28/18 00:58 Bedside Glucose 115 135 Hemoglobin 10.5 L Creatine Kinase 45 44 Creatine Kinase 1.5 1.3 Index Creatinine Kinase MB 0.67 0.56 (Mass) Troponin I < 0.012 < 0.012 Test 09/28/18 05:28 09/28/18 06:23 09/28/18 11:37 White Blood Count 12.4 #H Red Blood Count 3.60 L Hemoglobin 10.4 L Hematocrit 33.6 L Mean Corpuscular 93.3 Volume Mean Corpuscular 28.9 L Hemoglobin Mean Corpuscular 31.0 L Hemoglobin Concent Red Cell 14.7 H Distribution Width Platelet Count 279 Mean Platelet Volume 11.2 H Immature 0.400 Granulocytes % Neutrophils % 78.1 H Lymphocytes % 13.1 L Monocytes % 3.9 Eosinophils % 4.2 Basophils % 0.3 Nucleated Red Blood 0.0 Cells % Immature 0.050 H Granulocytes # Neutrophils # 9.7 H Lymphocytes # 1.6 Monocytes # 0.5 Eosinophils # 0.5 Basophils # 0.0 Nucleated Red Blood 0.0 Cells # Sodium Level 145 H Potassium Level 3.0 L Chloride Level 107 Carbon Dioxide Level 26 Anion Gap 12 Blood Urea Nitrogen 14 # Creatinine 1.19 Est Glomerular Filtrat Rate mL/min Glucose Level 137 Calcium Level 8.9 Creatine Kinase 43 Creatine Kinase 1.3 Index Creatinine Kinase MB 0.57 (Mass) Troponin I < 0.012 Bedside Glucose 132 100 Medications Medication Current Medications Insulin Aspart (Novolog Insulin Pen) NOVOLOG *MILD* ALGORI... Q6 SC Last administered on 09/26/18at 05:29; Admin Dose 1 UNIT; Start 09/24/18 at 18:00 Dextrose/Sodium Chloride 1,000 ml @ 75 mls/hr [id number] IV Last administered on 09/28/18at 09:26; Admin Dose 75 MLS/HR; Start 09/24/18 at 17:30 Miscellaneous Information 1 ea NOTE XX ; Start 09/24/18 at 17:30 Glucose (Glutose) 15 gm Q15M PRN PO DECREASED GLUCOSE; Start 09/24/18 at 17:30 Glucose (Glutose) 22.5 gm Q15M PRN PO DECREASED GLUCOSE; Start 09/24/18 at 17 :30 Dextrose (D50w Syringe) 25 ml Q15M PRN IV DECREASED GLUCOSE; Start 09/24/18 at 17:30 Dextrose (D50w Syringe) 50 ml Q15M PRN IV DECREASED GLUCOSE; Start 09/24/18 at 17:30 Glucagon (Glucagen) 1 mg Q15M PRN IM DECREASED GLUCOSE; Start 09/24/18 at 17:30 Glucose (Glutose) 15 gm Q15M PRN BUCCAL DECREASED GLUCOSE; Start 09/24/18 at 17:30 Bisacodyl (Dulcolax Supp) 10 mg DAILY PRN [place] CONSTIPATION; Start 09/24/18 at 17:30 Clobetasol Propionate (Temovate 0.05% Oint) 1 applic BID TOP Last administered on 09/28/18 09:26; Admin Dose 1 APPLIC; Start 09/24/18 at 21:00 Levetiracetam 100 ml @ 400 mls/hr BID IVPB Last administered on 09/28/18 09:24; Admin Dose 400 MLS/HR; Start 09/24/18 at 21:00 Hydralazine HCl (Apresoline) 20 mg Q6H PRN IV for SBP above 160; Start 09/24/18 at 17:30 Levothyroxine Sodium (Synthroid Iv) 25 mcg QAM IV Last administered on 09/28/18 09:24; Admin Dose 25 MCG; Start 09/25/18 at 06:00 Pantoprazole (Protonix Iv) 40 mg DAILY@06 IV Last administered on 09/28/18at 0 6:25; Admin Dose 40 MG; Start 09/25/18 at 06:00 Miscellaneous Information (Pending [facility] Order For Wound Care) This patient stuart... PRN PRN XX WOUND CARE; Start 09/24/18 at 20:00 Cefepime HCl 50 ml @ 100 mls/hr Q12 IVPB Last administered on 09/28/18 09:54; Admin Dose 100 MLS/HR; Start 09/25/18 at 09:00 Mupirocin (Bactroban) 1 applic BID TOP Last administered on 09/28/18 09:25; Admin Dose 1 APPLIC; Start 09/26/18 at 14:00 Levalbuterol (Xopenex Neb) 1.25 mg Q4H RESP THERAPY PRN HHN WHEEZING AND SOB Last administered on 09/28/18 02:10; Admin Dose 1.25 MG; Start 09/28/18 at 01:00 KADEEM MATHEW MD Sep 28, 2018 16:53
--- NOTE | 2018-09-28 17:58 | RADRPT ---
Echocardiogram Report Patient Name: SHOLA MARTINEZPatient ID: [id number] : 1945 (73y 1m)Study Date: 09/28/2018 9:33:37 AM Gender: MAccession #: [id number] Tech: Location: Ref.Physician: JACK CARRERO Height(Cm): BSA: Weight(Kg): Quality: Technically Difficult StudyAccount #: Procedures: Echocardiographic Report: Transthoracic echocardiogram with complete 2D, M-Mode, and doppler examination. Indications: Congestive Heart Failure. Measurements: 2D/M Mode Doppler Measurement Value Normal Range Measurement Value Normal Range LVIDd 2D 5.4 [ 4.2 - 5.8 ] cm AV Peak Lloyd 1.5 [ 100.0 - 170.0 ] cm/sec LVIDs 2D 3.6 [ 2.5 - 4.0 ] cm AV Peak PG 8.0 [ 2.0 - 9.0 ] mmHg LVPWd 2D 1.1 [ 0.6 - 1.0 ] cm LVOT Peak Lloyd 0.9 [ 70.0 - 110.0 ] cm/sec IVSd 2D 1.1 [ 0.6 - 1.0 ] cm LVOT Peak PG 3.0 [ 2.0 - 6.0 ] mmHg IVS/LVPW 2D 1.0 ratio MV E Peak Lloyd 0.7 [ 60.0 - 130.0 ] cm/sec AoR Diam 2D 3.0 [ 2.6 - 3.4 ] cm MV A Peak Lloyd 0.4 [ 100.0 - 120.0 ] cm/sec LA/Ao 2D 1 ratio MV E/A 1.6 [ 0.8 - 1.5 ] ratio LA Dimen 2D 3.1 [ 3.0 - 4.0 ] cm MV Decel Time 144 [ 104 - 258 ] msec Lat E` Lloyd 0.0 [ 10.0 - 15.0 ] cm/sec Med E` Lloyd 0.1 cm/sec MV E/A 1.6 [ 0.8 - 1.5 ] ratio TR Peak Lloyd 1.7 [ 100.0 - 280.0 ] cm/sec TR Peak PG 12.0 mmHg RVSP 20.0 [ 10.0 - 36.0 ] mmHg Findings: Left Ventricle: Normal left ventricular systolic function. Normal left ventricular cavity size. Left ventricular wall thickness upper limits of normal. Ejection fraction is visually estimated at 55 %. Tissue Doppler/Mitral Doppler indices are consistent with impaired relaxation (Stage I diastolic dysfunction). Right Ventricle: Normal right ventricular size. Normal right ventricular systolic function. Left Atrium: The left atrium is normal in size. Right Atrium: The right atrium is normal in size. Mitral Valve: Mild mitral leaflet calcification. Mild mitral annular calcification. Trace mitral regurgitation. Aortic Valve: No significant aortic stenosis or insufficiency. Aortic cusps appear moderately calcified. Trace aortic valve regurgitation. Tricuspid Valve: Normal appearance of the tricuspid valve. Estimated peak PA systolic pressure 20 mmHg. There is trace tricuspid regurgitation. Pulmonic Valve: Normal pulmonic valve appearance. There is trace pulmonic regurgitation. Pericardium: Trivial pericardial effusion. Aorta: Normal aortic root. IVC: Normal size and no respiratory collapse consistent with elevated right atrial pressure. Conclusions: Normal left ventricular systolic function. Normal left ventricular cavity size. Left ventricular wall thickness upper limits of normal. Ejection fraction is visually estimated at 55 %. Tissue Doppler/Mitral Doppler indices are consistent with impaired relaxation (Stage I diastolic dysfunction). Mild mitral leaflet calcification. Mild mitral annular calcification. Trace mitral regurgitation. No significant aortic stenosis or insufficiency. Aortic cusps appear moderately calcified. Trace aortic valve regurgitation. Normal appearance of the tricuspid valve. Estimated peak PA systolic pressure 20 mmHg. There is trace tricuspid regurgitation. Normal pulmonic valve appearance. There is trace pulmonic regurgitation. n. Trivial pericardial effusion. Electronically Signed By: Jack Carrero 2018-09-28 17:57:47 PST
--- NOTE | 2018-09-28 18:40 | NUR ---
END OF SHIFT AWAKE AND ALERT MALE PATIENT.NO RESPIRATORY DISTRESS WITH VENTILATOR.KCL:3.0 AND ADMINISTER 40 MEQ KCL IVPB. STARTED PUREED AND THICKEN LIQUID FROM DINNER.NO ASPIRATION AFTER DINNER. KEEP CHANGING POSITION Q 2HRS AND WOUND CARE FOR PRESSURE ULCER. ON ANTIBIOTICS FOR INFECTION. MONITORING PATIENT.
[2018-09-29] VITALS (21 sets, daily range): BP systolic 117–194; BP diastolic 61–98; PULSE 60–85; RESP 16–21
[2018-09-29] MEDS: INSULIN ASPART [NOVOLOG] 3 ML PEN SC SCH ×2 (01:31→06:00)
[2018-09-29] MEDS: PANTOPRAZOLE 40 MG INJ IV SCH (06:03)
--- NOTE | 2018-09-29 08:35 | CONS ---
Assessment/Plan Assessment/Plan Hospital Course (Demo Recall) 73 yo male 1. Dysphagia.- moderate oropharyngeal dysphagia per speech therapy -improving, on pureed nectar thickened foods 2. Vent dependent respiratory failure. 3. Chronic obstructive pulmonary disease. 4. Atrial fibrillation. 5. Seizure disorder. 6. Renal insufficiency. 7. Benign prostatic hypertrophy. 8. Diabetes mellitus. 9. History of nontoxic megacolon. 10. Mild anemia with very slow downward trend Plan: FOB, anemia work up Strict aspiration precautions Puree nectar thickened diet, pills with puree Speech therapy eval with video 09/28: A: moderate oropharyngeal dysphagia associated with reduced base of tongue retraction, reduced timing of swallow, reduced hyolaryngeal excursion and elevation and reduced coordination of breath with swallow safety. Pt is safe to initiate a diet with strict use of aspiration precautions to prevent aspiration. P: 1. Continue Poc. 2. Continue with puree diet and NTL by cup/water by teaspoon is ok w/ feeder assistance and direct supervision. 3. monitor at mealtime Consultation Date/Type/Reason Admit Date/Time Sep 24, 2018 at 14:46 Initial Consult Date 09/25/18 Requesting Provider: KADEEM MATHEW MD Date/Time of Note DATE: 09/29/18 TIME: 08:32 24 HR Interval Summary Free Text/Dictation Pt denies nausea. States he is having bm. He says he has been doing well with the pureed nectar foods. Exam/Review of Systems Exam Vitals Vital Signs Date Temp Pulse Resp B/P (MAP) Pulse Ox O2 O2 Flow FiO2 Time Delivery Rate 09/29/18 97.5 73 18 194/98 95 Room Air 07:45 (130) 09/29/18 30 05:20 Intake and Output 09/28/18 09/28/18 09/29/18 1414:59 22:59 06:59 IntakeIntake Total 200 ml 570 ml 880 ml OutputOutput Total 700 ml 600 ml BalanceBalance 200 ml -130 ml 280 ml Constitutional: alert Psych: no complaints Head: normocephalic Eyes: PERRL Neck: other (trach) Gastrointestinal: soft, distended Neurological: nl mental status Results Result Diagram: 09/28/18 0528 09/28/1828 Results 24hrs Laboratory Tests Test 09/28/18 11:37 09/28/18 17:12 09/29/18 01:29 09/29/18 05:59 Bedside Glucose 100 129 129 123 Medications Medication Current Medications Dextrose/Sodium Chloride 1,000 ml @ 40 mls/hr Q24H IV Last administered on 09/28/18at 09:26; Admin Dose 75 MLS/HR; Start 09/24/18 at 17:30 Miscellaneous Information 1 ea NOTE XX ; Start 09/24/18 at 17:30 Glucose (Glutose) 15 gm Q15M PRN PO DECREASED GLUCOSE; Start 09/24/18 at 17:30 Glucose (Glutose) 22.5 gm Q15M PRN PO DECREASED GLUCOSE; Start 09/24/18 at 17:30 Dextrose (D50w Syringe) 25 ml Q15M PRN IV DECREASED GLUCOSE; Start 09/24/18 at 17:30 Dextrose (D50w Syringe) 50 ml Q15M PRN IV DECREASED GLUCOSE; Start 09/24/18 at 17:30 Glucagon (Glucagen) 1 mg Q15M PRN IM DECREASED GLUCOSE; Start 09/24/18 at 17:30 Glucose (Glutose) 15 gm Q15M PRN BUCCAL DECREASED GLUCOSE; Start 09/24/18 at 17:30 Bisacodyl (Dulcolax Supp) 10 mg DAILY PRN [place] CONSTIPATION; Start 09/24/18 at 17:30 Clobetasol Propionate (Temovate 0.05% Oint) 1 applic BID TOP Last administered on 09/28/18at 20:13; Admin Dose 1 APPLIC; Start 09/24/18 at 21:00 Levetiracetam 100 ml @ 400 mls/hr BID IVPB Last administered on 09/28/18at 20:12; Admin Dose 400 MLS/HR; Start 09/24/18 at 21:00 Hydralazine HCl (Apresoline) 20 mg Q6H PRN IV for SBP above 160; Start 09/24/18 at 17:30 Levothyroxine Sodium (Synthroid Iv) 25 mcg QAM IV Last administered on 09/28/18at 09:24; Admin Dose 25 MCG; Start 09/25/18 at 06:00 Pantoprazole (Protonix Iv) 40 mg DAILY@06 IV Last administered on 09/29/18at 06:03; Admin Dose 40 MG; Start 09/25/18 at 06:00 Miscellaneous Information (Pending Santyl Order For Wound Care) This patient stuart... PRN PRN XX WOUND CARE; Start 09/24/18 at 20:00 Mupirocin (Bactroban) 1 applic BID TOP Last administered on 09/28/18at 20:13; Admin Dose 1 APPLIC; Start 09/26/18 at 14:00 Levalbuterol (Xopenex Neb) 1.25 mg Q4H RESP THERAPY PRN HHN WHEEZING AND SOB L ast administered on 09/28/18at 02:10; Admin Dose 1.25 MG; Start 09/28/18 at 01:00 Insulin Aspart (Novolog Insulin Pen) (Adult SC Insulin - Mild Algorithm)... AC MEALS AND BEDTIME SC ; Start 09/29/18 at 11:30 Diagnostic Test (Pha) (Accu-Chek) 1 ea 02 XX ; Start 09/30/18 at 02:00 KAREN DINH Sep 29, 2018 08:35
[2018-09-29] MEDS: MUPIROCIN 2% 22 GM OINT TOP SCH (09:28)
[2018-09-29] MEDS: BALSAM PERU/CASTOR OIL 60 GM TUBE TOP SCH (09:28)
[2018-09-29] MEDS: CLOBETASOL 0.05% 15 GM OINT TOP SCH (09:28)
[2018-09-29] MEDS: LEVETIRACETAM 1000 MG (PMX) 100 ML IVPB SCH (09:29)
[2018-09-29] MEDS: LEVOTHYROXINE 100 MCG VIAL IV SCH (09:29)
--- NOTE | 2018-09-29 09:55 | CONS ---
Assessment/Plan Assessment/Plan Assessment/Plan (Daily) Ventilator settings; assist control of 20, tidal volume 700, PEEP of 5, 30% FiO2. Assessment recommendations; 1. Patient admitted with acute alteration mental status with dysphagia with significant interval improvement. 2. Acute renal insufficiency with markedly improved renal function. 3. History of hypothyroidism and stable seizure disorder. Continue current supportive care. Consider transfer to snf once patient able to swallow adequately for at least 24 hours. Consultation Date/Type/Reason Admit Date/Time Sep 24, 2018 at 14:46 Initial Consult Date 09/25/18 Type of Consult Pulmonary Patient is a 73-year-old male with history of dementia and VDR F transferred to the hospital because of inability to swallow for the last 2 days. Patient also was found to be dehydrated with possibly acute on chronic renal insufficiency. Because of poor mental status, patient was unable to give any history by himself whatsoever. History was obtained from medical records. Patient however did not appear to be in any distress whatsoever. Past medical history; 1. VDR F evidently due to COPD. 2. History of tracheostomy 3. History of seizure disorder. 4. Possibly baseline mild renal insufficiency. 5. Chronic atrial for ablation. 6. BPH. 7. History of colitis. 8. Possibly underlying CHF as well. Medications; reviewed. Allergies; vancomycin. Family history, social history, occupational history not available. Review of system; unable to be obtained. General exam; elderly male, fairly responsive. Trying to communicate with lip movements. Currently no distress. On ventilator via tracheostomy. Requesting Provider: KADEEM MATHEW MD Date/Time of Note DATE: 09/29/18 TIME: 09:53 24 HR Interval Summary Free Text/Dictation Patient's condition is stable. Remains awake and alert. Patient able to swallow a pured diet adequately. General exam; elderly male, on ventilator via tracheostomy, awake and alert. Currently in no distress. Exam/Review of Systems Exam Vitals Vital Signs Date Temp Pulse Resp B/P (MAP) Pulse Ox O2 O2 Flow FiO2 Time Delivery Rate 09/29/18 70 20 96 30 09:14 09/29/18 97.5 194/98 Room Air 07:45 (130) Intake and Output 09/28/18 09/28/18 09/29/18 1515:00 23:00 07:00 IntakeIntake Total 200 ml 570 ml 880 ml OutputOutput Total 700 ml 600 ml BalanceBalance 200 ml -130 ml 280 ml Exam H EENT exam; supple neck, no JVD. No lymphadenopathy. Midline trachea. No thyromegaly. Tracheostomy in place. Insertion site is clean. Chest exam; diminished but clear breath sounds. S1-S2 audible, no murmurs. Regular rhythm. Abdomen exam; soft, no organomegaly. Nontender. Bowel sounds audible. Extremity exam; no peripheral edema clubbing. HAT CUTTER exam; patient is awake follows simple commands. Results Result Diagram: 09/28/1852709/28/18527 Results 24hrs Laboratory Tests Test 09/28/18 11:37 09/28/18 17:12 09/29/18 01:29 09/29/18 05:59 Bedside Glucose 100 129 129 123 Test 09/29/18 09:20 Absolute Reticulocyte 0.062 Count Percent Reticulocyte 1.6 H Count Medications Medication Current Medications Dextrose/Sodium Chloride 1,000 ml @ 40 mls/hr Q24H IV Last administered on 09/28/18at 09:26; Admin Dose 75 MLS/HR; Start 09/24/18 at 17:30 Miscellaneous Information 1 ea NOTE XX ; Start 09/24/18 at 17:30 Glucose (Glutose) 15 gm Q15M PRN PO DECREASED GLUCOSE; Start 09/24/18 at 17:30 Glucose (Glutose) 22.5 gm Q15M PRN PO DECREASED GLUCOSE; Start 09/24/18 at 17:30 Dextrose (D50w Syringe) 25 ml Q15M PRN IV DECREASED GLUCOSE; Start 09/24/18 at 17:30 Dextrose (D50w Syringe) 50 ml Q15M PRN IV DECREASED GLUCOSE; Start 09/24/18 at 17:30 Glucagon (Glucagen) 1 mg Q15M PRN IM DECREASED GLUCOSE; Start 09/24/18 at 17:30 Glucose (Glutose) 15 gm Q15M PRN BUCCAL DECREASED GLUCOSE; Start 09/24/18 at 17:30 Bisacodyl (Dulcolax Supp) 10 mg DAILY PRN [place] CONSTIPATION; Start 09/24/18 at 17:30 Clobetasol Propionate (Temovate 0.05% Oint) 1 applic BID TOP Last administered on 09/29/18at 09:28; Admin Dose 1 APPLIC; Start 09/24/18 at 21:00 Levetiracetam 100 ml @ 400 mls/hr BID IVPB Last administered on 09/29/18at 09:29; Admin Dose 400 MLS/HR; Start 09/24/18 at 21:00 Hydralazine HCl (Apresoline) 20 mg Q6H PRN IV for SBP above 160; Start 09/24/18 at 17:30 Levothyroxine Sodium (Synthroid Iv) 25 mcg QAM IV Last administered on 09/29/18at 09:29; Admin Dose 25 MCG; Start 09/25/18 at 06:00 Pantoprazole (Protonix Iv) 40 mg DAILY@06 IV Last administered on 09/29/18at 06:03; Admin Dose 40 MG; Start 09/25/18 at 06:00 Miscellaneous Information (Pending [facility] Order For Wound Care) This patient stuart... PRN PRN XX WOUND CARE; Start 09/24/18 at 20:00 Mupirocin (Bactroban) 1 applic BID TOP Last administered on 09/29/18at 09:28; Admin Dose 1 APPLIC; Start 09/26/18 at 14:00 Levalbuterol (Xopenex Neb) 1.25 mg Q4H RESP THERAPY PRN HHN WHEEZING AND SOB Last administered on 09/28/18at 02:10; Admin Dose 1.25 MG; Start 09/28/18 at 01:00 Insulin Aspart (Novolog Insulin Pen) (Adult SC Insulin - Mild Algorithm)... AC MEALS AND BEDTIME SC ; Start 09/29/18 at 11:30 Diagnostic Test (Pha) (Accu-Chek) 1 ea 02 XX ; Start 09/30/18 at 02:00 AYAD HERRON Sep 29, 2018 09:55
[2018-09-29] MEDS ORDERED: Insulin NOVOLOG SS MILD Algorithm (SS with meals and bedtime) SC SCH (11:30)
[2018-09-29] MEDS ORDERED: INSULIN ASPART [NOVOLOG] 3 ML PEN SC SCH (11:30)
--- NOTE | 2018-09-29 11:44 | DS ---
Date/Time of Note Date/Time of Note DATE: 09/29/18 TIME: 11:44 Discharge Summary Admission/Discharge Info Admit Date/Time Sep 24, 2018 at 14:46 Discharge Date/Time Consults Dr norwood, GI, Dr Cuenca, cardiology, Dr Kemp, pulmonology Procedures videoswallow eval Hx of Present Illness Hospital Course This is a 73-year-old halfway resident with a history of COPD, chronic respiratory failure, hypertension, hyperlipidemia, obesity on mechanical harish tilator, status post tracheostomy. He is normally able to eat and drink. He came in with difficulties swallowing for a 2 days. He reported sudden inability to swallow. Pt is a poor historia, able to say a few words. Denied chest pain, dysuria, cough, blood loss, melena, vomitting. He was brought in by paramedics DS: 1. Dysphagia. Clinical dehydration with elevated creatinine. Pt creatinine 2 years ago was normal. Xray chest reveals: Atelectasis versus mild infiltrates in the right lower lobe. 2. Chronic respiratory failure, status post tracheostomy. 3. Normocytic hypochromic anemia. 4. DM type ii 5. History of hypertension. 6. History of previous dysphagia. 7. History of nontoxic megacolon. 8. History of hypertension. 9. History of hyperlipidemia. 10. Overweight 11. History of long-term mechanical ventilation 12. History of chronic obstructive pulmonary disease. 13. Seborrhea 14. Hx of afib, pt was on Eliquis 15. Hx of BPH 16. SIRS, elevated wbc. possible aspirational pneumonia During hospitalization pt was on telemetry service, dr Cuenca adjusted his BP and angina. No events were detected . Dr Kemp managed pt ventilator and breathing treatment, found that patient is silently aspirated with straw. ST had video swallow with barrium and recommended use nectar thick liquids with aspiration precaution. Jose Francisco Norwood was called to managed pt dysphagia, bse in the beginning he was NPO and was given only IV a/b and IV medications. Speech therapist found that pt can go back to oral diet with precautions. Home Meds Reported Medications Acetaminophen* (Acetaminophen*) 650 Mg Tablet, 650 MG PO BID PRN for PAIN MA HE, #30 TAB 09/24/18 Acetaminophen* (Acetaminophen*) 500 MG Extra Strength Tablet, 1000 MG PO Q4 PRN for MODERATE PAIN LEVEL 4-6, TAB 09/24/18 Cran/Vitc/Mannose/Inulin/Brom (Uti-Stat Liquid) 3,875 Mg/30 Ml Liquid, 3875 MG PO BID 09/24/18 Ascorbic Acid* (Vitamin C*) 500 Mg Capsule.sa, 500 MG PO DAILY, CAP 09/24/18 Levalbuterol Hcl* (Levalbuterol Hcl*) 1.25 Mg/3 Ml Vial.neb, 1.25 MG INHALATION Q2H, VIAL GIVE WITH ATROVENT 0.5MG 09/24/18 Levalbuterol Hcl* (Levalbuterol Hcl*) 1.25 Mg/3 Ml Vial.neb, 1.25 MG INHALATION Q4 PRN for WHEEZING AND SOB, VIAL 09/24/18 Ondansetron Hcl* (Zofran*) 4 Mg Tab, 4 MG PO Q4H PRN for NAUSEA AND OR VOMITING, TAB 09/24/18 Levothyroxine Sodium* (Synthroid*) 25 Mcg Tablet, 25 MCG PO BEFORE BREAKFAST, #30 TAB 09/24/18 Isosorbide Mononitrate* (Isosorbide Mononitrate*) 30 Mg Tab.er.24h, 30 MG PO DAILY, TAB HOLD IF SBP BELOW 110 09/24/18 Levetiracetam* (Keppra*) 250 Mg Tab, 250 MG PO TID, TAB 09/24/18 Insulin Detemir (Levemir Flextouch) 100 Unit/1 Ml Insuln.pen, 15 UNIT SQ QHS, EA 09/24/18 Magnesium Hydroxide* (Milk Of Magnesia*) 400 Mg/5 Ml Oral.susp, 30 ML PO DAILY PRN for CONSTIPATION, ML 09/24/18 Gabapentin* (Gabapentin*) 100 Mg Capsule, 100 MG PO DAILY, #90 CAP 09/24/18 Hydrocodone/Acetaminophen ([place] 5-325 Tablet) 1 Each Tablet, 1 EACH PO Q6 PRN for SEVERE PAIN LEVEL 7-10, TAB 09/24/18 Famotidine* (Pepcid*) 20 Mg Tablet, 20 MG PO BID, #60 TAB 09/24/18 Pantoprazole* (Protonix*) 40 Mg Tablet.dr, 40 MG PO DAILY, TAB 09/24/18 Sennosides* (Senna Lax*) 8.6 Mg Tablet, 2 TAB PO BID, TAB 09/24/18 Acetaminophen* (Acetaminophen*) 650 Mg Tablet, 650 MG PO Q4 PRN for MILD PAIN LEVEL 1-3, #30 TAB 09/24/18 Acetaminophen* (Acetaminophen*) 325 Mg Tablet, 650 MG PO TRACH TUBE CHANGE PRN for PAIN AND OR ELEVATED TEMP, #30 TAB GIVE 30 MIN PRIOR 09/24/18 Lorazepam* (Ativan*) 0.5 Mg Tablet, 0.5 MG PO Q6 PRN for ANXIETY, #30 TAB 09/24/18 Chlorhexidine Gluconate (Peridex) 473 Ml Mouthwash, 15 ML MM Q12, BOTTLE 09/24/18 Loratadine* (Claritin*) 10 Mg Tablet, 10 MG PO DAILY, TAB 09/24/18 Docusate Sodium* (Colace*) 100 Mg Capsule, 100 MG PO TID, #60 CAP 09/24/18 Carvedilol* (Coreg*) 3.125 Mg Tablet, 3.125 MG PO BID, #60 TAB HOLD IF SBP BELOW 110 OR HR BELOW 60 09/24/18 Cranberry Extract (Cranberry) 425 Mg Capsule, 425 MG PO DAILY, CAP 09/24/18 Diltiazem Hcl* (Cardizem SR*) 60 Mg Capsr, 60 MG PO Q8, #60 CAP HOLD IF SBP BELOW 110 OR HR BELOW 60 09/24/18 Bisacodyl (Dulcolax) 10 Mg Supp.rect, 10 MG RC DAILY PRN for CONSTIPATION, SUPP.RECT 09/24/18 Apixaban* (Eliquis*) 5 Mg Tablet, 5 MG PO BID, TAB 09/24/18 Ferrous Sulfate* (Ferrous Sulfate*) 325 Mg Tabec, 325 MG PO DAILY, TAB 09/24/18 Na Phos,M-B/Na Phos,Di-Ba (ENEMA [id number]) 133 Ml Enema, 133 ML RC PRN PRN for SEVERE CONSTIPATION, ENEMA 09/24/18 Tamsulosin Hcl* (Tamsulosin Hcl*) 0.4 Mg Cap.er.24h, 0.4 MG PO HS, CAP 09/24/18 Polyvinyl Alcohol (Tears Again) 15 Ml Drops, 1 DRP BOTH EYES TID PRN for DRY EYES, BOTTLE 09/24/18 Amiodarone Hcl* (Amiodarone Hcl*) 200 Mg Tablet, 200 MG PO BID, #60 TAB 09/24/18 Lactobacillus Acidophilus/Pect (Acidophilus-Pectin Capsule) 1 Each Capsule, 1 EACH PO DAILY, CAP 09/24/18 Discontinued Reported Medications Simethicone* (Anti-Gas/80*) 80 Mg Tab.chew, 80 MG PO Q6H PRN for DISTENSION/GAS/BLOATING, TAB.CHEW 09/29/15 Polyethylene Glycol* (Miralax*) 17 Gm Powd.pack, 17 GM PO DAILY PRN for CONSTIPATION, #30 PACKET 09/29/15 Chlorhexidine Gluconate* (Peridex*) 480 Ml Mouthwash, 15 ML MM BID, ML 09/03/15 Loratadine* (Claritin*) 10 Mg Capsule, 10 MG PO DAILY, CAP 09/03/15 Levetiracetam* (Levetiracetam*) 250 Mg Tablet, 250 MG PO TID, TAB 09/03/15 Tamsulosin Hcl* (Tamsulosin Hcl*) 0.4 Mg Cap.er.24h, 0.4 MG PO DAILY, CAP 09/03/15 Lorazepam* (Lorazepam*) 1 Mg Tablet, 1 MG PO BID PRN for ANXIETY, #30 TAB 09/03/15 Benzocaine/Menthol* (Cepacol* Sore Throat Lozenges) 1 Each Lozenge, 1 EACH MM q2h PRN for SORE THROAT, LOZENGE 09/03/15 Insulin Glargine* (Lantus*) 100 Unit/Ml Soln, 10 UNIT SC DAILY, EA 09/03/15 Hydrocodone Bit-Acetaminophen* ([place]*) 5-325 Mg Tab, 1 TAB PO Q6 PRN for SEVERE PAIN LEVEL 7-10, TAB 09/03/15 Atorvastatin Calcium* (Atorvastatin Calcium*) 20 Mg Tablet, 20 MG PO QHS, #30 TAB 09/03/15 Rivaroxaban* (Xarelto*) 20 Mg Tablet, 20 MG PO WITH DINNER, TAB 02/26/15 Ascorbic Acid (Vitamin C) 500 Mg Tab, 500 MG PO DAILY, TAB 02/26/15 Budesonide* (Pulmicort*) 1 Mg/2 Ml Ampul.neb, 0.5 MG IH BID, EA 02/26/15 Magaldrate/Simethicone* (Mag-Al Plus Suspension*) 30 Ml Oral.susp, 30 ML PO Q6H PRN for GASTROINTESTINAL UPSET, ML 02/26/15 Furosemide* (Lasix*) 20 Mg Tablet, 20 MG PO DAILY, TAB 02/26/15 Diltiazem Hcl* (Cardizem*) 30 Mg Tablet, 30 MG PO Q8, TAB HOLD IF SBP BELOW 110 OR HR BELOW 60 02/26/15 Docusate Sodium* (Colace*) 100 Mg Capsule, 100 MG PO TID, CAP 02/26/15 Lubiprostone* (Amitiza*) 24 Mcg Capsule, 24 MCG PO DAILY PRN for CONSTIPATION, CAP 02/26/15 Insulin Aspart* (Novolog Insulin Vial*) 100 U/Ml Vial, 0 SC SLIDING SCALE AC, VIAL 0-150 = 0 UNIT 151-200 = 2 UNITS 201-250 = 4 UNITS 251-300 = 6 UNITS 301-350 = 8 UNITS 351-400 = 10 UNITS ABOVE 400 OR BELOW 60 NOTIFY . MAY GIVE OJ 8 OZ OF GLUCOSE GEL IF BS IS BELOW 60 02/26/15 Pantoprazole* (Protonix*) 40 Mg Tablet.dr, 40 MG PO DAILY, TAB 07/31/14 Isosorbide Mononitrate* (Imdur*) 30 Mg Tab.sr.24h, 30 MG PO DAILY, TAB HOLD FOR SBP BELOW 110 07/31/14 Na Phos,M-B/Na Phos,Di-Ba* (Fleet* Enema) 118 Ml Enema, 118 ML [place] Q48H PRN for CONSTIPATION, ENEMA 07/31/14 Bisacodyl* (Dulcolax*) 10 Mg/Supp.rect Supp.rect, 10 MG [place] DAILY PRN for CONST IPATION, SUPP.RECT 07/31/14 Glucagon* (Glucagen*) 1 Mg Soln, 1 MG IM Q15MIN PRN for DECREASED GLUCOSE, VIAL 05/06/14 Ondansetron Hcl* (Zofran*) 4 Mg Tablet, 4 MG PO Q4H PRN for NAUSEA AND OR VOMITING, TAB 05/06/14 Levalbuterol* (Xopenex*) 0.63 Mg/3 Ml Nebu, 0.63 MG HHN Q2H PRN for WHEEZING AND SOB, EA 05/06/14 Cran/Vitc/Mannose/Inulin/Brom (Uti-Stat Liquid) 3,875 Mg/30 Ml Liquid, 30 ML PO BID 05/06/14 Acetaminophen* (Tylenol*) 500 Mg Tab, 1000 MG PO Q4H PRN for PAIN AND OR ELEVATED TEMP, TAB 05/06/14 Acetaminophen* (Tylenol*) 325 Mg Tablet, 650 MG PO Q4H PRN for MILD PAIN LEVEL 1-3, TAB 05/06/14 Artificial Tears* (Artificial Tears* Ophth) 15 ml Opht, 1 DROP BOTH EYES BID PRN for DRY EYES, EA 05/06/14 Multivitamins,Therapeutic (Theragran) 1 Tab Tablet, 1 TAB PO DAILY 11/23/13 Gemfibrozil* (Lopid*) 600 Mg Tablet, 600 MG PO BID 11/23/13 Ferrous Sulfate* (Ferrous Sulfate*) 325 Mg Tablet, 325 MG PO DAILY 11/23/13 Amiodarone Hcl* (Amiodarone Hcl*) 200 Mg Tablet, 200 MG PO DAILY 11/23/13 Primary Care Provider Hema Araujo MD Pending Labs Laboratory Tests Test 09/28/18 17:12 09/29/18 01:29 09/29/18 05:59 09/29/18 09:20 Bedside 129 129 123 Glucose mg/dL (70-220) mg/dL (70-220) mg/dL (70-220) Absolute 0.062 Reticulocyte X10^6 (0.020-0 Count .110) Percent 1.6 Reticulocyte % (0.5-1.5) Count Iron Level 25 ug/dl (35-150) Total Iron 262 Binding ug/dl (241-421 Capacity ) Percent Iron 10 % Saturation SAT (22-52) Ferritin 60.3 ng/ml (11.1-26 4.0) Vitamin B12 407 Level pg/ml (239-931 ) Folate 5.6 ng/ml (2.8-20. 0) Test 09/29/18 11:15 Bedside 113 Glucose mg/dL (70-220) REBECA VIGIL Sep 29, 2018 11:44
--- NOTE | 2018-09-29 13:00 | NUR ---
Dysphagia/Swallow Therapy note: Clinical Bedside Swallow Evaluation Completed: Brief Hx: Mr. Bailey is a 73-year-old assisted resident with a history of COPD, chronic respiratory failure, hypertension, hyperlipidemia, obesity on mechanical ventilator, status post tracheostomy. He is normally able to eat and drink. He came in with difficulties swallowing for a 2 days. He reported sudden inability to swallow. Pt is a poor historian, able to say a few words. Denied chest pain, dysuria, cough, blood loss, melena, vomiting. PMHX: DM type ii, hypertension, previous dysphagia, nontoxic megacolon, hypertension and hyperlipidemia. Chest XR completed on 09/27/2018: IMPRESSION: 1. Improved atelectasis in the left lung base. 2. Stable benign chronic changes throughout the lungs. 3. Tracheostomy tube in good position without pneumothorax. 4. Atherosclerotic vascular calcifications. Vitals; temp: 97.7; RR: 18-20; SPO2: 98% on mechanical ventilator (A/C setting, Tidal Volume: 700; PEEP: 5); with XLT DCT#6 with cuff moderately inflated. Labs: WBC: 12.4H (maintained); PLOF at SNF: regular/thin liquids, however SNF reported over the phone that they were considering downgrading his diet due to difficulty with mastication the bolus due to being edentulous. Current: Puree diet and [place] thick liquids by cup/thin by teaspoon with supervision and assistance as needed Video swallow completed on 09/27/2018: Silent aspiration was noted during and after the swallow with NTL and thin by straw, deep penetration with puree, which cleared out of the airway, transient penetration with thin liquids by teaspoon and penetration with NTL by cup and thin liquids by cup, but no aspiration. No aspiration on video swallow study with puree, thin liquids by teaspoon or Beluga thick liquids by teaspoon or cup. S: Pt was received awake, alert and agreeable for tx. PT was seen with lunch meal tray. Pt was able to vocalize through the trach, once a trace amount of air was removed from the moderately inflated cuff. O: Rx plan was reviewed and tx consisted of the followin. improve swallow safety. 2. optimize oral care and hygiene management, +Xerostomia noted and clean/clear. nursing appreciated. 3. Pt was suctioned prior to start of therapy session inorder to clear the audible secretions in the upper airway. Minimal reddish secretions were noted in in the suctioning. Therapist failed to provide additional O2 during the suctioning and pt started to [place] to 87% SPO2 level and more reddish coloration in the face. Once the O2 level was added following the suctioning, the pts SPO2 level returned back to 96% and his color improved. 4. assess p.o intake with use of swallowing strategies w/ lunch meal tray: pt consumed single sips of thin liquid by teaspoon x 10, single bites of puree fish x2 and 15 single bites of finely chopped turkey with bread and cheese with use of double dry swallow and liquid wash (NTL by cup). Slow and adequate bolus manipulation and mastication. NO s/s of aspiration or penetration noted during or after the swallow, aswell as no change in SPO2 level. 5. consulted with RN regarding the pts overall swallowing status and ability to safely tolerate foods, aswell as liquids without use of straws inorder to prevent aspiration. 7. p.o status/diet consistency/level of supervision: initiate puree diet and NTL by cup, and thin liquids (water) by teaspoon is ok with feeder assistance and supervision. A: Pt presents with moderate oropharyngeal dysphagia associated with reduced base of tongue retraction, reduced timing of swallow, reduced hyolaryngeal excursion and elevation and reduced coordination of breath with swallow safety. Pt is safe to advance to mechanical soft (finely chopped textures) and continue with [place] thick liquids by cup and thin liquids by teaspoon. The pt and staff continue to be compliant with the recommended swallowing strategies (effortful swallow during the swallow) and double dry swallow w/ liquid wash after the swallow to reduce the amount of residue in the pharyngeal cavity during and after the swallow. P: 1. Continue Poc. 2. Advance to mechanical soft (finely chopped) and NTL by cup and thin liquids by teaspoon w/ feeder assistance and direct supervision. 3. monitor at mealtime
--- NOTE | 2018-09-29 13:20 | NUR ---
LUCIA DISCHARGE NOTES: Plan is for pt to return to LTAC, located within [facility] [phone] where pt came from. Bed confirmed by Kinsey from admitting. [phone]. [facility] [phone] pickup time at 4:00pm (TRIP #[id number]). Transfer/Amb/IMM Forms completed and in chart. Pt, MD, and Maribell LOPEZ made aware. Will followup as needed. Jp MYERS [phone]
--- NOTE | 2018-09-29 14:16 | NUR ---
GIVEN REPORT FOR TRANSFER TO [facility] TO [facility](JESSICA).
--- NOTE | 2018-09-29 14:43 | CONS ---
Assessment/Plan Assessment/Plan Hospital Course (Demo Recall) IMPRESSION: 1. History of paroxysmal atrial fibrillation, assess for recurrent arrythmia-currently in SR. NL EF by echo this admit 2. Abnormal electrocardiogram, assess for acute coronary syndrome.-neg trop x 3 3. Congestive heart failure by chest x-ray on admit, currently improved, likely diastolic, acute on chronic by history. 4. Chronic respiratory failure, status post trach. 5. Dysphagia, difficulty swallowing reason for admit. 6. Possible pneumonia, possible aspiration. 7. Hypothyroidism. 8. Diabetes mellitus. 9. Anemia. 10. Renal failure. Recc: -Tele -s/p course of abx's, f/u cx data -follow labile BP closely -[facility] wells Consultation Date/Type/Reason Admit Date/Time Sep 24, 2018 at 14:46 Initial Consult Date 09/25/18 Type of Consult Cardiology Reason for Consultation PAF Requesting Provider: KADEEM MATHEW MD Date/Time of Note DATE: 09/29/18 TIME: 14:41 Exam/Review of Systems Vital Signs Vitals Vital Signs Date Temp Pulse Resp B/P (MAP) Pulse Ox O2 O2 Flow FiO2 Time Delivery Rate 09/29/18 85 136/78 14:21 (97) 09/29/18 21 99 30 13:24 09/29/18 97.6 Room Air 11:53 Intake and Output 09/28/18 09/28/18 09/29/18 1515:00 23:00 07:00 IntakeIntake Total 200 ml 570 ml 880 ml OutputOutput Total 700 ml 600 ml BalanceBalance 200 ml -130 ml 280 ml Exam Exam Review of Systems: CONSTITUTIONAL: No fevers, chills. PULMONARY: trached CARDIOVASCULAR: No chest pain/palpitations GASTROINTESTINAL: No nausea/vomiting. GENITOURINARY: No hematuria/dysuria. MUSCULOSKELETAL: No myagias/arthalgias. PSYCHIATRIC: The patient denies depression. NEUROLOGIC: No weakness Constitutional: alert Psych: no complaints ENMT: mucosa pink and moist Neck: supple, jvd (9 cm water) Respiratory: diminished breath sounds Cardiovascular: regular rate and rhythm Gastrointestinal: soft, non-tender Musculoskeletal: muscle tone (normal) Extremities: edema (none) Neurological: other (No focal deficits) Labs Result Diagram: 09/28/1852709/28/18527 Results 24hrs Laboratory Tests Test 09/28/18 17:12 09/29/18 01:29 09/29/18 05:59 09/29/18 09:20 Bedside Glucose 129 129 123 Absolute Reticulocyte 0.062 Count Percent Reticulocyte 1.6 H Count Iron Level 25 L Total Iron Binding 262 Capacity Percent Iron Saturation 10 L Ferritin 60.3 Vitamin B12 Level 407 Folate 5.6 Test 09/29/18 11:15 Bedside Glucose 113 Medications Medications Current Medications Dextrose/Sodium Chloride 1,000 ml @ 40 mls/hr Q24H IV Last administered on 09/28/18at 09:26; Admin Dose 75 MLS/HR; Start 09/24/18 at 17:30 Miscellaneous Information 1 ea NOTE XX ; Start 09/24/18 at 17:30 Glucose (Glutose) 15 gm Q15M PRN PO DECREASED GLUCOSE; Start 09/24/18 at 17:30 Glucose (Glutose) 22.5 gm Q15M PRN PO DECREASED GLUCOSE; Start 09/24/18 at 17:30 Dextrose (D50w Syringe) 25 ml Q15M PRN IV DECREASED GLUCOSE; Start 09/24/18 at 17:30 Dextrose (D50w Syringe) 50 ml Q15M PRN IV DECREASED GLUCOSE; Start 09/24/18 at 17:30 Glucagon (Glucagen) 1 mg Q15M PRN IM DECREASED GLUCOSE; Start 09/24/18 at 17:30 Glucose (Glutose) 15 gm Q15M PRN BUCCAL DECREASED GLUCOSE; Start 09/24/18 at 17:30 Bisacodyl (Dulcolax Supp) 10 mg DAILY PRN [place] CONSTIPATION; Start 09/24/18 at 17:30 Clobetasol Propionate (Temovate 0.05% Oint) 1 applic BID TOP Last administered on 09/29/18at 09:28; Admin Dose 1 APPLIC; Start 09/24/18 at 21:00 Levetiracetam 100 ml @ 400 mls/hr BID IVPB Last administered on 09/29/18at 09:29; Admin Dose 400 MLS/HR; Start 09/24/18 at 21:00 Hydralazine HCl (Apresoline) 20 mg Q6H PRN IV for SBP above 160; Start 09/24/18 at 17:30 Levothyroxine Sodium (Synthroid Iv) 25 mcg QAM IV Last administered on 09/29/18at 09:29; Admin Dose 25 MCG; Start 09/25/18 at 06:00 Pantoprazole (Protonix Iv) 40 mg DAILY@06 IV Last administered on 09/29/18at 06:03; Admin Dose 40 MG; Start 09/25/18 at 06:00 Miscellaneous Information (Pending Santyl Order For Wound Care) This patient stuart... PRN PRN XX WOUND CARE; Start 09/24/18 at 20:00 Mupirocin (Bactroban) 1 applic BID TOP Last administered on 09/29/18at 09:28; Admin Dose 1 APPLIC; Start 09/26/18 at 14:00 Levalbuterol (Xopenex Neb) 1.25 mg Q4H RESP THERAPY PRN HHN WHEEZING AND SOB Last administered on 09/28/18at 02:10; Admin Dose 1.25 MG; Start 09/28/18 at 01:00 Insulin Aspart (Novolog Insulin Pen) (Adult SC Insulin - Mild Algorithm)... AC MEALS AND BEDTIME SC ; Start 09/29/18 at 11:30 Diagnostic Test (Pha) (Accu-Chek) 1 ea 02 XX ; Start 09/30/18 at 02:00 JACK CARRERO Sep 29, 2018 14:43
[2018-09-29] MEDS: LEVALBUTEROL (NEB) 1.25 MG/0.5 ML AMP HHN PRN (15:19)
--- NOTE | 2018-09-29 17:19 | NUR ---
PATIENT TRANSFER TO [facility] BY [facility].
[2018-09-30] MEDS ORDERED: ACCUCHECK AT 2AM (Patients on SS coverage) XX SCH (02:00)
== END 2018-09-29 17:10 | DRG 207 ==
LOC: E/R 10:11 → 6WM 14:46 → CANRESERV 15:34
PROVIDERS: ADMIT Internal Medicine; ATTEND Internal Medicine
PROC: 5A1955Z Respiratory Ventilation, Greater than 96 Consecutive Hours (ICD-10-PCS; principal; 2018-09-24)
DX: J69.0 Pneumonitis due to inhalation of food and vomit (principal); L89.323 Pressure ulcer of left buttock, stage 3; L89.313 Pressure ulcer of right buttock, stage 3; L89.213 Pressure ulcer of right hip, stage 3; J96.10 Chronic respiratory failure, unspecified whether with hypoxia or hypercapnia; I13.0 Hypertensive heart and chronic kidney disease with heart failure and stage 1 through stage 4 chronic kidney disease, or unspecified chronic kidney disease; N17.9 Acute kidney failure, unspecified; I50.32 Chronic diastolic (congestive) heart failure; E11.22 Type 2 diabetes mellitus with diabetic chronic kidney disease; R13.10 Dysphagia, unspecified; I48.2 Chronic atrial fibrillation; E86.0 Dehydration; Z99.81 Dependence on supplemental oxygen; J44.9 Chronic obstructive pulmonary disease, unspecified; D64.9 Anemia, unspecified; G40.909 Epilepsy, unspecified, not intractable, without status epilepticus; N40.0 Benign prostatic hyperplasia without lower urinary tract symptoms; L21.9 Seborrheic dermatitis, unspecified; E78.5 Hyperlipidemia, unspecified; N18.9 Chronic kidney disease, unspecified; E03.9 Hypothyroidism, unspecified; R62.7 Adult failure to thrive; E66.3 Overweight; Z68.29 Body mass index [BMI] 29.0-29.9, adult; Z93.0 Tracheostomy status; Z79.4 Long term (current) use of insulin; Z87.891 Personal history of nicotine dependence
CPT/HCPCS: 36415; 71045; 74230; 80048; 82550; 82553; 82607; 82728; 82746; 82962; 83036; 83540; 83880; 84443; 84484; 85018; 85025; 85045; 87040; 87081; 92526; 92610; 92611; 93005; 93306; 94002; 94003; 94640; 96374; 96375; C9113; J0692; J1650; J1815; J1953; J1956; J3480; J7042